=== PATIENT | female | born 1975 | race Two or more races ===

== ENCOUNTER 2025-03-07 19:40 | Emergency (ER) | payer MEDICAID, OTHER ==
[~2025-03-07] VITALS: Ht 160 cm; Wt 88.6 kg
[2025-03-07 19:40] VITALS: TEMP 97
[2025-03-07 20:12] VITALS: PULSE 221; RESP 29
--- NOTE | 2025-03-07 20:15 | ED.PDOC ---
HPI Comments 49-year-old female who came to ER for palpitations. Patient has history of hypertension, congestive heart failure and SVTs. States last attack was 2016. She has been off her lisinopril for the past 2 weeks. For the past hour, she has been experiencing palpitations and chest pains. States pain is similar to when she had an SVT. Chief Complaint: Palpitations Time Seen by MD: 20:15 Reviewed Notes: Nurses Notes Allergies: Coded Allergies: Latex (Verified Allergy, Unknown, 03/07/25) Uncoded Allergies: TDAP (Allergy, Unknown, 03/07/25) Home Meds Active Scripts Lisinopril (Lisinopril) 20 Mg Tab, 1 TAB PO DAILY, #90 TAB 1 Refill Prov:MARYA LYNN MD 03/07/25 Information Source: Patient Mode of Arrival: Ambulatory Severity: Moderate Timing: Minutes Duration: Since onset Quality: Other (Palpitation) History of: Similar pain in past Associated Signs and Symptoms: Palpitations Past Medical History PAST MEDICAL HISTORY: CHF, HTN Past Medical History (Other): SVT Surgical History: Denies all surgeries SOFTWARE ARCHITECT History: Denies all SOFTWARE ARCHITECT Hx Family History Family History: Reviewed,noncontributory to illness Social History Smoker: Non-Smoker Alcohol: Denies ETOH Use Drugs: Denies Drug Use Lives In: Home Constitutional: denies: chills, diaphoresis, fatigue, fever, malaise, sweats, weakness, others EENTM: denies: blurred vision, double vision, ear bleeding, ear discharge, ear drainage, ear pain, ear ringing, eye pain, eye redness, hearing loss, mouth pain, mouth swelling, nasal discharge, nose bleeding, nose congestion, nose pain, photophobia, tearing, throat pain, throat swelling, voice changes, others Respiratory: denies: cough, hemoptysis, orthopnea, SOB at rest, shortness of breath, SOB with excertion, stridor, wheezing, others Cardiovascular: reports: chest pain, palpitations; denies: dizzy spells, diaphoresis, Dyspnea on exertion, edema, irregular heart beat, left arm pain, lightheadedness, PND, syncope, others Gastrointestinal: denies: abdomen distended, abdominal pain, blood streaked bowels, constipated, diarrhea, dysphagia, difficulty swallowing, hematemesis, melena, nausea, poor appetite, poor fluid intake, rectal bleeding, rectal pain, vomiting, others Genitourinary: denies: abnormal vagina bleeding, burning, dyspareunia, dysuria, flank pain, frequency, hematuria, incontinence, pain, , vagina discharge, urgency, others Neurological: denies: dizziness, fainting, headache, left sided numbness, left sided weakness, numbness, paresthesia, pre-existing deficit, right sided numbness, right sided weakness, seizure, speech problems, tingling, tremors, weakness, others Musculoskeletal: denies: back pain, gout, joint pain, joint swelling, muscle pain, muscle stiffness, neck pain, others Integumetry: denies: bruises, change in color, change in hair/nails, dryness, laceration, lesions, lumps, rash, wounds, others Allergic/Immunocompromised: denies: Difficulty Healing, Frequent Infections, Hives, Itching, others Hematologic/Lymphatic: denies: anemia, blood clots, easy bleeding, easy bruising, swollen glands, others Endocrine: denies: excessive hunger, excessive sweating, excessive thirst, excessive urination, flushing, intolerance to cold, intolerance to heat, unexplained weight gain, unexplained weight loss, others Psychiatric: denies: anxiety, bipolar disorder, depression, hopeless, panic disorder, schizophrenia, sleepless, suicidal, others Physical Exam General Appearance: No Apparent Distress, Normal HEENT: Normal ENT Inspection, Pharynx Normal, TMs Normal Neck: Full Range of Motion, Non-Tender, Normal, Normal Inspection Respiratory: Chest Non-Tender, Lungs Clear, No Accessory Muscle Use, No Respiratory Distress, Normal Breath Sounds Cardiovascular: No Edema, No JVD, No Murmur, No Gallop, Tachycardia Breast Exam: Deferred Gastrointestinal: No Organomegaly, Non Tender, No Pulsatile Mass, Normal Bowel Sounds, Soft Genitalia: Deferred Pelvic: Deferred Rectal: Deferred Extremities: No calf tenderness, Normal capillary refill, Normal inspection, Normal range of motion, Non-tender, No pedal edema Musculoskeletal : Apperance: Normal Neurologic: Alert, small arms artillery repairer II-XII nml as Tested, No Motor Deficits, Normal Affect, Normal Mood, No Sensory Deficits Cerebellar Function: Normal Reflexes: Normal Skin: Dry, Normal Color, Warm Lymphatic: No Adenopathy EKG EKG : Pulse Rate (adult): 223 Cardiac Rhythm: PSVT Was a procedure done? Was a procedure done?: No CP Differential Dx Differential Diagnosis: A-fib, Angina, Anxiety / Panic Attack, Heart Failure, Hyperthyroidism, Hyperventilation, PSVT, Sinus Tachycardia X-Ray, Labs, Meds, VS Vital Signs Date Time Temp Pulse Resp B/P (MAP) Pulse Ox O2 Delivery O2 Flow Rate FiO2 03/07/25 22:00 93 17 104/85 (91) 97 03/07/25 21:00 105 22 127/87 (100) 97 03/07/25 20:30 115 25 132/86 (101) 97 03/07/25 20:21 102 03/07/25 20:15 223 03/07/25 20:12 221 29 132/107 (115) 94 03/07/25 20:12 221 29 Room Air* 0 21 03/07/25 19:59 223 03/07/25 19:40 97.0 208 20 118/97 94 97.0 Lab Test 03/07/25 21:11 03/07/25 20:15 Range/Units Sodium Level 141 136-145 mmol/L Potassium Level 3.8 3.5-5.1 mmol/L Chloride Level 109 H 98-107 mmol/L Carbon Dioxide Level 21 20-31 mmol/L Anion Gap 11 5-15 Blood Urea Nitrogen 14 9-23 mg/dL Creatinine 0.76 0.550-1.02 mg/dL Glomerular Filtration Rate Calc 95 >90 mL/min BUN/Creatinine Ratio 18.4 10.0-20.0 Serum Glucose 92 74-106 mg/dL Calcium Level 9.3 8.7-10.4 mg/dL Magnesium Level 2.2 1.6-2.6 mg/dL Total Bilirubin 0.2 0.2-1.0 mg/dL Aspartate Amino Transferase (AST) 29 13-40 U/L Alanine Aminotransferase (ALT) 29 7-40 U/L Alkaline Phosphatase 96 46-116 U/L Troponin I High Sensitivity 68 *H 22 </=34 ng/L Total Protein 7.2 5.7-8.2 g/dL Albumin 4.2 3.2-4.8 g/dL White Blood Count 11.1 H 4.4-10.8 10^3/uL Red Blood Count 5.05 4.0-5.20 10^6/uL Hemoglobin 15.6 12.2-16.2 g/dL Hematocrit 46.4 H 36.0-46.0 % Mean Corpuscular Volume 91.8 80.0-100.0 fL Mean Corpuscular Hemoglobin 30.9 28.0-32.0 pg Mean Corpuscular Hemoglobin Concent 33.7 32.0-36.0 g/dL Red Cell Distribution Width 13.9 11.8-14.3 % Platelet Count 355 140-450 10^3/uL Mean Platelet Volume 8.6 6.9-10.8 fL Neutrophils (%) (Auto) 57.2 37.0-80.0 % Lymphocytes (%) (Auto) 29.5 10.0-50.0 % Monocytes (%) (Auto) 8.8 0.0-12.0 % Eosinophils (%) (Auto) 2.7 0.0-7.0 % Basophils (%) (Auto) 1.8 0.0-2.0 % Neutrophils # (Auto) 6.3 1.6-8.6 10 ^3/uL Lymphocytes # (Auto) 3.3 0.4-5.4 10 ^3/uL Monocytes # (Auto) 1.0 0-1.3 10 ^3/uL Eosinophils # (Auto) 0.3 0-0.8 10 ^3/uL Basophils # (Auto) 0.2 0-0.2 10 ^3/uL Nucleated Red Blood Cells 0.2 % Current Medications Medications (Trade) Dose Ordered Sig/Julia Route Start Time Stop Time Status Last Admin Adenosine (Adenosine) 6 mg ONCE ONCE IV 03/07/25 20:15 03/07/25 20:16 DC 03/07/25 20:23 Time of 1ST Reevaluation: 20:12 Reevaluation 1ST: Unchanged Patient Education/Counseling: Diagnosis, Treatment Family Education/Counseling: No Family Present SEPSIS Sepsis Screen Physician Orders Rigger Helper (03/07/25 19:59) Chest Xray 1 View (03/07/25 19:59) Vital Signs Date Time Temp Pulse Resp B/P (MAP) Pulse Ox O2 Delivery O2 Flow Rate FiO2 03/07/25 22:00 93 17 104/85 (91) 97 03/07/25 21:00 105 22 127/87 (100) 97 03/07/25 20:30 115 25 132/86 (101) 97 03/07/25 20:21 102 03/07/25 20:15 223 03/07/25 20:12 221 29 132/107 (115) 94 03/07/25 20:12 221 29 Room Air* 0 21 03/07/25 19:59 223 03/07/25 19:40 97.0 208 20 118/97 94 97.0 Laboratory Tests Test 03/07/25 20:15 White Blood Count 11.1 10^3/uL (4.4-10.8) H Medications Medications Dose Ordered Sig/Julia Route Start Time Stop Time Status Last Admin Dose Admin Adenosine 6 mg ONCE ONCE IV 03/07/25 20:15 03/07/25 20:16 DC 03/07/25 20:23 Departure 1 Departure Time of Disposition: 22:00 Impression: Primary Impression: Hypertension Additional Impression: SVT (supraventricular tachycardia) Disposition: HOME / SELF CARE / HOMELESS Condition: Stable e-Prescriptions Lisinopril (Lisinopril) 20 Mg Tab 1 TAB PO DAILY, #90 TAB 1 Refill Prov: MARYA LYNN MD 03/07/25 Discharged With: Self Critical Care Note Critical Care Time?: Yes (35 min-critical care time only) Critical care comment: SVTs Stability Stability form required: No Heart Score Heart Score: Heart Score Response (Comments) Value History Moderate Suspicious 1 EKG Repolarization Disturb 1 Age 45-64 1 Risk Factors 1 or 2 risk factors 1 Troponin Normal limit 0 Total 4 I personally scribed for MARYA LYNN MD ([email or web address]) on 03/07/25 at 20:15. Electronically submitted by Anderson Ferrari ([facility]). MARYA LYNN MD Mar 07, 2025 20:15
[2025-03-07] MEDS: ADENOSINE 6 MG/2 ML INJ IV ONE (20:23)
[2025-03-07 20:46] LABS: Hematocrit 46.4 % (36.0-46.0); Hemoglobin 15.6 g/dL (12.2-16.2); Mean Corpuscular Hemoglobin 30.9 pg (28.0-32.0); Mean Corpuscular Volume 91.8 fL (80.0-100.0); Nucleated Red Blood Cells % 0.2 %
--- NOTE | 2025-03-07 20:53 | DVH ---
CHEST RADIOGRAPH Indication: chest pain Technique: Single frontal view of the chest was obtained Comparison: None FINDINGS: Lines and Tubes: None Lungs: No focal consolidation. Pleura: No effusion. No pneumothorax. Cardiomediastinal contours: Unremarkable Bones: No acute osseous abnormality. IMPRESSION: 1. No acute cardiopulmonary disease.
[2025-03-07 21:52] LABS: Alanine Aminotransferase 29 U/L (7-40); Albumin 4.2 g/dL (3.2-4.8); Alkaline Phosphatase 96 U/L (46-116); Anion Gap 11 (5-15); BUN/Creatinine Ratio 18.4 (10.0-20.0); Blood Urea Nitrogen 14 mg/dL (9-23); Calcium 9.3 mg/dL (8.7-10.4); Carbon Dioxide 21 mmol/L (20-31); Glucose 92 mg/dL (74-106); Magnesium 2.2 mg/dL (1.6-2.6); Potassium 3.8 mmol/L (3.5-5.1); Sodium 141 mmol/L (136-145); Total Protein 7.2 g/dL (5.7-8.2)
[2025-03-07 22:00] VITALS: BP 104/85; PULSE 93; RESP 17; O2SAT 97
[2025-03-07 22:10] LABS: Bilirubin, Total 0.2 mg/dL (0.2-1.0); Chloride 109 mmol/L (98-107)
[2025-03-07] MEDS ORDERED: LISI20TA56 PO (22:18)
--- NOTE | 2025-03-08 00:40 | ECG ---
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
--- NOTE | 2025-03-10 10:31 | ECG ---
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
== END 2025-03-07 22:35 | disposition home or self-care (01) ==
LOC: ER 19:50
DX: I11.0 Hypertensive heart disease with heart failure (principal); I50.9 Heart failure, unspecified; I47.10 Supraventricular tachycardia, unspecified; Z79.899 Other long term (current) drug therapy; Z88.7 Allergy status to serum and vaccine; Z91.040 Latex allergy status
CPT/HCPCS: 36415; 71045; 80053; 83735; 84484; 85025; 93005; 96374; 99285; J0153

== ENCOUNTER 2025-03-16 19:07 | Emergency (ER) | payer MEDICAID ==
[~2025-03-16] VITALS: Ht 160 cm; Wt 93.8 kg
[~2025-03-16 19:07] MED LIST: LISI20TA56 PO
--- NOTE | 2025-03-16 19:25 | ED.PDOC ---
HPI Allergic reaction HPI Comments HPI: 49-year-old female who came to ER for allergic reaction. Patient states she usually gets allergic reaction 2-3x/ year. About 2 hours prior to arrival, she started experiencing right facial swelling, throat swelling and pruritus. She opted not to take Benadryl because it makes her feel sleepy, so she decided to go straight to the ER. Patient claims she might have been bitten by a dust mite on the right arm Initial Vitals BP: HR:75 RR:18 O2:99% Temp:98.0 F Past Medical History: Hypertension, CHF, SVT Past Surgical History: BTL Social History: Medications: Allergies: Dust mites, latex, Diphteria_Tetanus vaccine, cats Ortiz: allergic rxn. HPI: Poor Historian. REVIEW OF SYSTEMS: CONSTITUTIONAL: Denies acute: fever, diaphoresis, chills, generalized weakness. HEAD: Denies acute: headache, photophobia Eyes: Denies acute: Double vision, vision loss, eye pain, eye discharge. EARS: Denies acute: tinnitus, hearing loss, ear discharge, ear pain, THROAT: Denies acute: sore throat, swelling, difficulty swallowing , pain with swallowing, change in voice. NECK: Denies acute: neck pain, neck swelling, stiff neck. HEART: Denies acute : chest pain, palpitations, LUNGS: Denies acute: SOB, wheezing, cough, hemoptysis ABDOMEN: Denies acute: abdominal pain, Nausea, Vomiting, diarrhea, melena , hematemesis, hematochezia SKIN: Denies acute: rash, redness, lesions, itchiness. EXTREMITIES: Denies acute: calf pain, numbness, tingling, weakness, denies pain in extremity. Denies acute: Low back pain. Neuro: Denies acute: focal neurological deficit, motor or sensory focal neurological deficit, tremors, seizure like activity, confusion, dizziness, change in mental status, loss of bowel or bladder function, cauda equina like symptoms. : Denies acute: dysuria, hematuria, flank pain, increase in urinary frequency. PSYCH: Denies acute: hallucination, suicidal ideation, homicidal ideation. FEMALE: Denies acute: abnormal vaginal bleeding, foul odor, unusual discharge. PHYSICAL EXAM: General: ----no----acute distress, awake and alert. Head: normocephalic, atraumatic. Neck: supple, trachea is midline, no swelling. Throat: Normal phonation. No obstruction, no swelling, no drooling, no airway compromise, no erythema, no exudates Minimal right lower lip puffiness minimal right mandibular puffiness Eyes:, no erythema, no purulent discharge, no proptosis, no icterus. Heart: regular rate, regular rhythm, no significant murmur appreciated. Lungs: no apparent respiratory distress, Able to speak in full sentences. No wheezing, no rhonchi, no crackles. No stridors Clear to auscultation bilaterally. Abdomen: non tender to palpation, non distended, soft, no guarding, no rebound, + bowel sounds. Obese Neuro: Awake, Alert, oriented to name, self, situation, follows commands GCS=15. Speech is normal. Skin: no petechia, no purpura, no cyanosis, non-pale, not jaundice. Lower extremities: --no - Pitting edema no deformity, no focal swelling, no calf TTP. Makes eye contact. moves all four extremities. Face: no apparent facial droop. Ambulating in the ED independently. No nuchal rigidity, Kernig's sign, Brudzinski's sign, no meningeal signs. ED COURSE: DISCLAIMER: This medical document was created using an electronic medical record system with voice recognition software and computerized dictation system. Although this document has been carefully reviewed, there might still be some phonetic and typographical errors. Occasional wrong-word or "sound-alike" substitutions may have occurred due to the inherent limitations of voice recognition software. These areas are purely typographical due to imperfections of the software programs and do not reflect any compromise in the patient's medical care. Please read the chart carefully and recognize, using context, where these substitutions have occurred. Chief Complaint: Allergic Reaction Time Seen by MD: 19:25 Reviewed Notes: Nurses Notes Allergies: Coded Allergies: Latex (Verified Allergy, Unknown, 03/07/25) Uncoded Allergies: TDAP (Allergy, Unknown, 03/07/25) Home Meds Active Scripts Prednisone (Prednisone) 20 Mg Tab, 40 MG PO DAILY for 5 Days, #10 TAB Prov:ROLANDO CHRISTIANSON DO 03/16/25 Epinephrine (Anaphylaxis) (Auvi-Q) 0.1 Mg/0.1 Ml Inj, 0.1 MG IJ O PRN for 1 Day, #1 INJ Prov:ROLANDO CHRISTIANSON DO 03/16/25 Lisinopril (Lisinopril) 20 Mg Tab, 1 TAB PO DAILY, #90 TAB 1 Refill Prov:MARYA LYNN MD 03/07/25 Information Source: Patient Mode of Arrival: Ambulatory Past Medical History PAST MEDICAL HISTORY: CHF, HTN Surgical History: Denies all surgeries HEALTH CENTER ASSOCIATE History: Denies all HEALTH CENTER ASSOCIATE Hx Family History Family History: Reviewed,noncontributory to illness Social History Smoker: Non-Smoker Alcohol: Denies ETOH Use Drugs: Denies Drug Use Lives In: Home Was a procedure done? Was a procedure done?: No Differential diagnosis (all) Differential Diagnosis: Anaphylaxis, Angioedema, Bronchospasm, Contact Dermatitis, Drug Reaction, Hypotension, Renal Failure, Respiratory Failure, Shock, Urticaria X-Ray, Labs, Meds, VS Vital Signs Date Time Temp Pulse Resp B/P (MAP) Pulse Ox O2 Delivery O2 Flow Rate FiO2 03/16/25 20:03 81 18 97 Room Air* 0 21 03/16/25 20:03 98.1 81 18 152/90 (110) 97 98.1 03/16/25 19:08 98.0 75 18 99 98.0 Current Medications Medications (Trade) Dose Ordered Sig/Julia Route Start Time Stop Time Status Last Admin Famotidine (Pepcid Injection) 20 mg ONCE ONCE IV 03/16/25 19:30 03/16/25 19:31 DC 03/16/25 20:19 Methylprednisolone Sodium Succinate (Solu Medrol) 125 mg ONCE ONCE IV 03/16/25 19:30 03/16/25 19:31 DC 03/16/25 20:16 Diphenhydramine HCl (Benadryl Injection) 25 mg ONCE ONCE IV 03/16/25 19:30 03/16/25 19:31 DC 03/16/25 20:16 Dexamethasone Sodium Phosphate (Decadron Injection) 20 mg ONCE ONCE IV 03/16/25 22:00 03/16/25 22:01 DC 03/16/25 22:10 Time of 1ST Reevaluation: 23:45 Reevaluation 1ST: Resolved Patient Education/Counseling: Diagnosis, Treatment Family Education/Counseling: Other Comments MDM: patient presented with the above HPI.----allergic reaction--workup was initiated. patient was found with the above mentioned diagnosis. the following medications were ordered: please refer to order lists of meds and tests obtained by myself Dr. Christianson. Patient ED course and VS have been stabilized. Patient has [facility]essed [facility] and remained in a stable condition. Pertinent incidental findings were discussed with the patient and/or family. Patient/family voices understanding and is agreeable with plan. Patient has been observed in the ED adequate length of time to insure improvement/stability. Escalation of care considered: Consideration of escalation to observation or admission Patient was DISCHARGED home in a stable condition. All the reports of any imaging studies that were ordered by myself were reviewed by myself. SEPSIS Sepsis Screen Date sepsis recognized/suspect: Mar 16, 2025 Time Sepsis recognized/suspect: 1908 Recent Procedure: No On Antibiotic Therapy: No Respiratory Rate >20: No Heart Rate >90: No Temp<36 C (96.8 F) or >38.3 C: No SBP <90 or MAP <65 mmHG: No New Acute Mental Status Change: No Is the patient on CPAP, BIPAP,: No Physician Orders Ticket Taker (03/16/25 ) Vital Signs Date Time Temp Pulse Resp B/P (MAP) Pulse Ox O2 Delivery O2 Flow Rate FiO2 03/16/25 20:03 81 18 97 Room Air* 0 21 03/16/25 20:03 98.1 81 18 152/90 (110) 97 98.1 03/16/25 19:08 98.0 75 18 99 98.0 Medications Medications Dose Ordered Sig/Julia Route Start Time Stop Time Status Last Admin Dose Admin Dexamethasone Sodium Phosphate 20 mg ONCE ONCE IV 03/16/25 22:00 03/16/25 22:01 DC 03/16/25 22:10 Diphenhydramine HCl 25 mg ONCE ONCE IV 03/16/25 19:30 03/16/25 19:31 DC 03/16/25 20:16 Famotidine 20 mg ONCE ONCE IV 03/16/25 19:30 03/16/25 19:31 DC 03/16/25 20:19 Methylprednisolone Sodium Succinate 125 mg ONCE ONCE IV 03/16/25 19:30 03/16/25 19:31 DC 03/16/25 20:16 Departure 1 Departure Time of Disposition: 21:46 Impression: Primary Impression: Allergic reaction Disposition: HOME / SELF CARE / HOMELESS Condition: Stable Additional Instructions: Additional instructions: Please read all instructions provided in this packet carefully. You MUST follow-up with your primary care/family doctor in 1 to 2 days. If you are unable to see your primary care/family doctor, please return to our emergency room for re-assessment and re-evaluation in 1 to 2 days. Return to the emergency room here in our facility or to the nearest ER [facility] if your symptoms change or worsen. CONSULTATIONS: you MUST Follow-up for consultation as soon as possible with: --cancer registrar in 1-2 days. Please call for appointment. You MUST call the consultants office yourself to make an appointment. You may need to arrange that through your insurance and/or your primary/family doctor. If you are unable to see the merchandising consultant in 1 to 2 days, you must return to our emergency room (or any other ER of your choice) for re-assessment and re-evalu ation. Adequate fluid hydration. Take the following [id number] medications daily for the next five days Benadryl 25 mg one pill by mouth daily for five days. Pepcid 20 mg one pill by mouth daily for five days. You are also prescribed steroids to take. Pick this up from the pharmacy Although you have been discharged from the Emergency Department, this does not mean that you have a "clean bill of health". No definitive diagnosis for your symptoms has been made today. It is possible that you are in the process of developing a serious illness. This is why you must return to the ED without fail if any new or worsening symptoms develop. e-Prescriptions Prednisone (Prednisone) 20 Mg Tab 40 MG PO DAILY for 5 Days, #10 TAB Prov: ROLANDO CHRISTIANSON DO 03/16/25 Epinephrine (Anaphylaxis) (Auvi-Q) 0.1 Mg/0.1 Ml Inj 0.1 MG IJ O PRN for 1 Day, #1 INJ Prov: ROLANDO CHRISTIANSON DO 03/16/25 Discharged With: Self Critical Care Note Critical Care Time?: Yes (45 min-critical care time only) Critical care comment: Allergic reaction Additional Comments Additional Comments Additional Comments Stability Stability form required: No I personally scribed for ROLANDO CHRISTIANSON DO ([email or web address]) on 03/16/25 at 19:25. E lectronically submitted by Anderson Ferrari ([email or web address]). ROLANDO CHRISTIANSON DO Mar 16, 2025 19:25
[2025-03-16 20:03] VITALS: PULSE 81; RESP 18; TEMP 98.1; O2SAT 97
[2025-03-16] MEDS: diphenhydrAMINE HCL 50 MG/1 ML VL IV ONE (20:16)
[2025-03-16] MEDS: methylPREDNISolone SOD SUCC 125 MG/2 ML VL IV ONE (20:16)
[2025-03-16] MEDS: FAMOTIDINE (10MG/ML) 2ML VL IV ONE (20:19)
[2025-03-16] MEDS ORDERED: EPIN0.1I11 IJ (21:46)
[2025-03-16] MEDS ORDERED: PRED20TA2 PO (21:47)
[2025-03-17 00:01] VITALS: BP 141/72; PULSE 84; RESP 18; O2SAT 98
== END 2025-03-17 00:03 | disposition home or self-care (01) ==
LOC: ER 19:07
DX: L29.9 Pruritus, unspecified (principal); T78.40XA Allergy, unspecified, initial encounter; I11.0 Hypertensive heart disease with heart failure; I50.9 Heart failure, unspecified; Z79.899 Other long term (current) drug therapy; Z98.51 Tubal ligation status; Z91.040 Latex allergy status; Z88.7 Allergy status to serum and vaccine; X58.XXXA Exposure to other specified factors, initial encounter
CPT/HCPCS: 96374; 96375; 99284; J1100; J1200; J2919; J3490

== ENCOUNTER 2025-05-13 16:28 | Emergency (ER) | payer MEDICAID, OTHER ==
[~2025-05-13] VITALS: Ht 160 cm; Wt 97.7 kg
[~2025-05-13 16:28] MED LIST changes: +EPIN0.1I11 IJ; +PRED20TA2 PO
[2025-05-13] MEDS: ADENOSINE 6 MG/2 ML INJ IV ONE ×2 (16:42→16:47)
--- NOTE | 2025-05-13 16:43 | ED.PDOC ---
History of Present Illness HPI Comments 49 y/o obese F presents with c/c of palpitations and nonradiating, substernal chest pain. Patient endorses on sudden and unprovoked onset of symptoms 30-40x minutes prior to ED arrival. Significant history for SVT, CHF, and HTN. She reports on symptoms feeling similar to previous SVT episode 2x months ago. No reported associated shortness of breath, dizziness, or further acute symptoms. Time Seen by MD: 16:30 Reviewed Notes: Nurses Notes, Medications, Allergies Allergies: Coded Allergies: Latex (Verified Allergy, Unknown, 03/07/25) Uncoded Allergies: TDAP (Allergy, Unknown, 03/07/25) Home Meds Active Scripts Prednisone (Prednisone) 20 Mg Tab, 40 MG PO DAILY for 5 Days, #10 TAB Prov:ROLANDO CHRISTIANSON DO 03/16/25 Epinephrine (Anaphylaxis) (Auvi-Q) 0.1 Mg/0.1 Ml Inj, 0.1 MG IJ O PRN for 1 Day, #1 INJ Prov:ROLANDO CHRISTIANSON DO 03/16/25 Lisinopril (Lisinopril) 20 Mg Tab, 1 TAB PO DAILY, #90 TAB 1 Refill Prov:MARYA LYNN MD 03/07/25 Information Source: Patient Mode of Arrival: Ambulatory Severity: Moderate Timing: Minutes Duration: Since onset Prehospital treatment: None Past Medical History PAST MEDICAL HISTORY: CHF, HTN Past Medical History (Other): SVT Surgical History: 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 Family History Family History: Reviewed,noncontributory to illness Social History Smoker: Other (nicotine vape ) Alcohol: Denies ETOH Use Drugs: Denies Drug Use Lives In: Home Constitutional: denies: chills, diaphoresis, fatigue, fever, malaise, sweats, weakness, others EENTM: denies: blurred vision, double vision, ear bleeding, ear discharge, ear drainage, ear pain, ear ringing, eye pain, eye redness, hearing loss, mouth pain, mouth swelling, nasal discharge, nose bleeding, nose congestion, nose pain, photophobia, tearing, throat pain, throat swelling, voice changes, others Respiratory: denies: cough, hemoptysis, orthopnea, SOB at rest, shortness of b reath, SOB with excertion, stridor, wheezing, others Cardiovascular: reports: chest pain, palpitations; denies: dizzy spells, diaphoresis, Dyspnea on exertion, edema, irregular heart beat, left arm pain, lightheadedness, PND, syncope, others Gastrointestinal: denies: abdomen distended, abdominal pain, blood streaked bowels, constipated, diarrhea, dysphagia, difficulty swallowing, hematemesis, melena, nausea, poor appetite, poor fluid intake, rectal bleeding, rectal pain, vomiting, others Genitourinary: denies: abnormal vagina bleeding, burning, dyspareunia, dysuria, flank pain, frequency, hematuria, incontinence, pain, , vagina discharge, urgency, others Neurological: denies: dizziness, fainting, headache, left sided numbness, left sided weakness, numbness, paresthesia, pre-existing deficit, right sided numbness, right sided weakness, seizure, speech problems, tingling, tremors, weakness, others Musculoskeletal: denies: back pain, gout, joint pain, joint swelling, muscle pain, muscle stiffness, neck pain, others Integumetry: denies: bruises, change in color, change in hair/nails, dryness, laceration, lesions, lumps, rash, wounds, others Allergic/Immunocompromised: denies: Difficulty Healing, Frequent Infections, Hives, Itching, others Hematologic/Lymphatic: denies: anemia, blood clots, easy bleeding, easy bruising, swollen glands, others Endocrine: denies: excessive hunger, excessive sweating, excessive thirst, excessive urination, flushing, intolerance to cold, intolerance to heat, unexplained weight gain, unexplained weight loss, others Psychiatric: denies: anxiety, bipolar disorder, depression, hopeless, panic disorder, schizophrenia, sleepless, suicidal, others All Other Systems: Reviewed and Negative Physical Exam General Appearance: Moderate Distress HEENT: Normal ENT Inspection, Pharynx Normal, TMs Normal Neck: Full Range of Motion, Non-Tender, Normal, Normal Inspection Respiratory: Chest Non-Tender, Lungs Clear, No Accessory Muscle Use, No Respiratory Distress, Normal Breath Sounds Cardiovascular: No Edema, No JVD, No Murmur, No Gallop, Tachycardia Breast Exam: Deferred Gastrointestinal: No Organomegaly, Non Tender, No Pulsatile Mass, Normal Bowel Sounds, Soft Genitalia: Deferred Pelvic: Deferred Rectal: Deferred Extremities: No calf tenderness, Normal capillary refill, Normal inspection, Normal range of motion, Non-tender, No pedal edema Musculoskeletal : Apperance: Normal Neurologic: Alert, supply chain procurement manager II-XII nml as Tested, No Motor Deficits, Normal Affect, Normal Mood, No Sensory Deficits Cerebellar Function: Normal Reflexes: Normal Skin: Dry, Normal Color, Warm Lymphatic: No Adenopathy Was a procedure done? Was a procedure done?: No EKG EKG : Pulse Rate (adult): 236 [place]: Normal Cardiac Rhythm: PSVT Differential Dx Considerations may include: SVT, arrhythmia, NC, PE, electrolyte imbalance, dehydration, among others X-Ray, Labs, Meds, VS Vital Signs Date Time Temp Pulse Resp B/P (MAP) Pulse Ox O2 Delivery O2 Flow Rate FiO2 05/13/25 18:43 97.5 94 15 120/89 (99) 100 97.5 05/13/25 17:01 108 25 96 Room Air* 0 21 05/13/25 17:01 97.6 108 16 131/71 (91) 97 97.6 05/13/25 16:43 236 05/13/25 16:39 98.4 228 18 111/41 97 98.4 Lab Test 05/13/25 17:53 05/13/25 16:53 Range/Units Troponin I High Sensitivity 27 6 </=34 ng/L White Blood Count 9.5 4.4-10.8 10^3/uL Red Blood Count 4.54 4.0-5.20 10^6/uL Hemoglobin 14.1 12.2-16.2 g/dL Hematocrit 42.1 36.0-46.0 % Mean Corpuscular Volume 92.8 80.0-100.0 fL Mean Corpuscular Hemoglobin 31.1 28.0-32.0 pg Mean Corpuscular Hemoglobin Concent 33.5 32.0-36.0 g/dL Red Cell Distribution Width 13.9 11.8-14.3 % Platelet Count 332 140-450 10^3/uL Mean Platelet Volume 8.3 6.9-10.8 fL Neutrophils (%) (Auto) 57.9 37.0-80.0 % Lymphocytes (%) (Auto) 28.7 10.0-50.0 % Monocytes (%) (Auto) 9.4 0.0-12.0 % Eosinophils (%) (Auto) 3.1 0.0-7.0 % Basophils (%) (Auto) 0.9 0.0-2.0 % Neutrophils # (Auto) 5.5 1.6-8.6 10 ^3/uL Lymphocytes # (Auto) 2.7 0.4-5.4 10 ^3/uL Monocytes # (Auto) 0.9 0-1.3 10 ^3/uL Eosinophils # (Auto) 0.3 0-0.8 10 ^3/uL Basophils # (Auto) 0.1 0-0.2 10 ^3/uL Nucleated Red Blood Cells 0.0 % Sodium Level 141 136-145 mmol/L Potassium Level 3.6 3.5-5.1 mmol/L Chloride Level 109 H 98-107 mmol/L Carbon Dioxide Level 21 20-31 mmol/L Anion Gap 11 5-15 Blood Urea Nitrogen 13 9-23 mg/dL Creatinine 0.82 0.550-1.02 mg/dL Glomerular Filtration Rate Calc 87 >90 mL/min BUN/Creatinine Ratio 15.9 10.0-20.0 Serum Glucose 102 74-106 mg/dL Calcium Level 9.8 8.7-10.4 mg/dL Magnesium Level 2.2 1.6-2.6 mg/dL Current Medications Medications (Trade) Dose Ordered Sig/Julia Route Start Time Stop Time Status Last Admin Adenosine (Adenosine) 6 mg ONCE ONCE IV 05/13/25 16:45 05/13/25 16:46 DC 05/13/25 16:42 IV Hep-Lock was established. The patient's CBC and chemistry panel are within normal limits The troponin level x2 is negative The patient was given adenosine 6 mg IV push The patient converted into normal sinus rhythm at around 90 At this time, the patient is being discharged and will follow up with the primary care doctor The patient will return to the emergency department's the condition worsens The patient understands and agrees with the management Time of 1ST Reevaluation: 17:00 Reevaluation 1ST: Improved Patient Education/Counseling: Diagnosis, Treatment, Prognosis, Need For Follow Up Family Education/Counseling: No Family Present SEPSIS Sepsis Screen Physician Orders Heplock Iv (05/13/25 16:40) Troponin-I Hs (05/13/25 19:40) Electrocardigram (05/13/25 17:40) Electrocardigram (05/13/25 19:40) Treater (05/13/25 16:40) Blood Pressure (05/13/25 16:40) Pulse Oximetry (05/13/25 16:40) Electrocardigram (05/13/25 16:40) Vital Signs Date Time Temp Pulse Resp B/P (MAP) Pulse Ox O2 Delivery O2 Flow Rate FiO2 05/13/25 18:43 97.5 94 15 120/89 (99) 100 97.5 05/13/25 17:01 108 25 96 Room Air* 0 21 05/13/25 17:01 97.6 108 16 131/71 (91) 97 97.6 05/13/25 16:43 236 05/13/25 16:39 98.4 228 18 111/41 97 98.4 Laboratory Tests Test 05/13/25 16:53 White Blood Count 9.5 10^3/uL (4.4-10.8) Medications Medications Dose Ordered Sig/Julia Route Start Time Stop Time Status Last Admin Dose Admin Adenosine 6 mg ONCE ONCE IV 05/13/25 16:45 05/13/25 16:46 DC 05/13/25 16:42 Departure 1 Departure Time of Disposition: 19:17 Impression: Primary Impression: SVT (supraventricular tachycardia) Disposition: 01 HOME / SELF CARE / HOMELESS Condition: Fair Discharged With: Self Critical Care Note Critical Care Time?: No Stability Stability form required: No Heart Score Heart Score: Heart Score Response (Comments) Value History Highly Suspicious 2 EKG Repolarization Disturb 1 Age 45-64 1 Risk Factors >3 or Hx ASHD 2 Troponin Normal limit 0 Total 6 I personally scribed for JOELLE MCCORD MD ([email or web address]) on 05/13/25 at 16:43. Electronically submitted by Cristhian Higgins ([email or web address]). I personally scribed for JOELLE MCCORD MD ([email or web address]) on 05/13/25 at 16:44. Electronically submitted by Cristhian Higgins ([email or web address]). JOELLE MCCORD MD May 13, 2025 16:43
[2025-05-13 17:01] VITALS: PULSE 108; RESP 25; O2SAT 96
[2025-05-13 17:36] LABS: Hematocrit 42.1 % (36.0-46.0); Hemoglobin 14.1 g/dL (12.2-16.2); Mean Corpuscular Hemoglobin 31.1 pg (28.0-32.0); Mean Corpuscular Volume 92.8 fL (80.0-100.0); Nucleated Red Blood Cells % 0.0 %
[2025-05-13 17:45] LABS: Potassium 3.6 mmol/L (3.5-5.1); Sodium 141 mmol/L (136-145)
[2025-05-13 17:46] LABS: Anion Gap 11 (5-15); Calcium 9.8 mg/dL (8.7-10.4); Carbon Dioxide 21 mmol/L (20-31)
[2025-05-13 17:47] LABS: Chloride 109 mmol/L (98-107)
[2025-05-13 17:51] LABS: BUN/Creatinine Ratio 15.9 (10.0-20.0); Blood Urea Nitrogen 13 mg/dL (9-23); Glucose 102 mg/dL (74-106); Magnesium 2.2 mg/dL (1.6-2.6)
[2025-05-13 19:56] VITALS: BP 120/89; PULSE 98; RESP 14; TEMP 98.3; O2SAT 98
--- NOTE | 2025-05-13 22:44 | ECG ---
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
--- NOTE | 2025-05-13 23:52 | ECG ---
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
--- NOTE | 2025-05-14 13:57 | ECG ---
[facility] Test Date: 2025-05-13 Test Time: 16:30:40 Pat Name: DOC BEARD Department: ED Room: Gender: F Spa Supervisor: gordon : 1975 Requested By: JOELLE MCCORD Order Number: [id number] Reading MD: Measurements Intervals Osteen Rate: 236 P: -29 ID: [id number] QRS: 82 QRSD: 76 T: -56 QT: 209 QTc: 415 Interpretive Statements Supraventricular tachycardia Probable anteroseptal infarct, recent Baseline wander in lead(s) II,III,aVL,aVF,V1,V2,V3,V4,V5,V6 Please click the below link to view image of tracing.
== END 2025-05-13 20:06 | disposition home or self-care (01) ==
LOC: ER 16:28
DX: I47.10 Supraventricular tachycardia, unspecified (principal); I11.0 Hypertensive heart disease with heart failure; F17.290 Nicotine dependence, other tobacco product, uncomplicated; Z91.040 Latex allergy status; Z98.51 Tubal ligation status; Z88.7 Allergy status to serum and vaccine; Z79.52 Long term (current) use of systemic steroids; Z79.899 Other long term (current) drug therapy
CPT/HCPCS: 36415; 80048; 83735; 84484; 85025; 93005; 96374; 99284; J0153

== ENCOUNTER 2025-05-13 21:27 | Inpatient (IN) | payer OTHER ==
[~2025-05-13] VITALS: Ht 160 cm; Wt 107.5 kg
[2025-05-13 21:52] VITALS: PULSE 220; RESP 20; O2SAT 97
[2025-05-13] MEDS: dilTIAZem 25 MG/5 ML VIAL IV ONE (21:57)
--- NOTE | 2025-05-13 21:59 | ED.PDOC ---
History of Present Illness HPI Comments 49 y/o F presents with c/c of palpitations and nonradiating, substernal chest pain today. Patient was seen earlier today, around 1630, by Dr. Zapata for the same issue. Patient was given adenosine 6mg IV push. Patient converted to normal sinus rhythm at around 90BPM. Patient reports leaving the ED around 1999, but returning to the ED with sudden, onset of symptoms. Significant history for SVT, CHF, and HTN. She reports on symptoms feeling similar to previous SVT episode 2x months ago. No reported associated shortness of breath, dizziness, or further acute symptoms. REVIEW OF SYSTEMS: General: No fever, no chills, or fatigue HEENT: No sore throat, no earache, no congestion, no neck pain. Cardiac: (+) chest pain. No palpitations. Lungs: No shortness of breath, no cough. GI: No nausea, no vomiting, no diarrhea, no constipation, no abdominal pain : No dysuria, frequency, or urgency. No hematuria. Musculoskeletal: No joint pain , no joint swelling, no extremity edema. Skin: No rash, no itching. Neuro: No headache, no dizziness, no weakness (And as sated in HPI) PHYSICAL EXAM: General: Awake, alert and oriented. No acute distress. Skin: Skin in warm, dry and intact. Appropriate color for ethnicity. HEENT: The head is normocephalic and atraumatic. Conjunctivae are clear without exudates or hemorrhage. Sclera is non-icteric. Eyelids are normal in appearance without swelling or lesions. Oral mucosa is pink and moist Neck: The neck is supple with normal range of motion. No JVD. Cardiac: Rapid rate, regular rhythm. No murmurs, gallops, or rubs are auscultated. Respiratory: No signs of respiratory distress. Lung sounds are clear in all lobes bilaterally without rales, rhonchi, or wheezes. Extremities: Lower extremities without edema. Neurological: The patient is awake, alert and oriented to person, place, and time with normal speech. Speech is clear. There is no facial asymmetry. Psychiatric: Appropriate mood and affect. Good judgement and insight. Chief Complaint: Palpitations Time Seen by MD: 21:28 Reviewed Notes: Medications, Allergies Allergies: Coded Allergies: Latex (Verified Allergy, Unknown, 03/07/25) Penicillins (Verified Allergy, Unknown, 05/13/25) Uncoded Allergies: TDAP (Allergy, Unknown, 03/07/25) Home Meds Active Scripts Metoprolol Tartrate (LOPRESSOR TABLET) 50 Mg Tb, 50 MG PO BID for 30 Days, #60 TAB Prov:MAYO MOJICA PRE WAVE ASSEMBLER 05/15/25 Prednisone (Prednisone) 20 Mg Tab, 40 MG PO DAILY for 5 Days, #10 TAB Prov:ROLANDO CHRISTIANSON DO 03/16/25 Epinephrine (Anaphylaxis) (Auvi-Q) 0.1 Mg/0.1 Ml Inj, 0.1 MG IJ O PRN for 1 Day, #1 INJ Prov:ROLANDO CHRISTIANSON DO 03/16/25 Lisinopril (Lisinopril) 20 Mg Tab, 1 TAB PO DAILY, #90 TAB 1 Refill Prov:MARYA LYNN MD 03/07/25 Information Source: Patient Mode of Arrival: Ambulatory Severity: Moderate Timing: Hours Duration: Intermittent Past Medical History PAST MEDICAL HISTORY: CHF, HTN 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 Was a procedure done?: No EKG EKG : Pulse Rate (adult): 220 [place]: Normal Comments Supraventricular tachycardia Differential Dx Considerations may include: Differential diagnoses considered include acute ischemic coronary syndrome, aortic dissection, cardiac tamponade, mediastinitis, pulmonary embolus, pneumothorax, tension pneumothorax, esophageal rupture, coronary artery vasospasm, myocarditis, pericarditis, pneumonia, pulmonary edema, esophageal tear, pancreatitis, aortic stenosis, dilated cardiomyopathy, hypertrophic cardiomyopathy, mitral valve prolapse, malignancy, pleuritis, pneumomediastinum, primary pulmonary hypertension, cholecystitis, esophageal spasm, esophagus, gastritis, GERD, peptic ulcer disease, costochondritis, fibromyalgia, rib fracture, herpes zoster, radicular syndromes, thoracic outlet syndrome, somatization. X-Ray, Labs, Meds, VS Vital Signs Date Time Temp Pulse Resp B/P (MAP) Pulse Ox O2 Delivery O2 Flow Rate FiO2 05/13/25 23:00 97.5 92 16 96/70 (79) 97 97.5 05/13/25 22:41 95 05/13/25 22:17 97.5 88 19 107/72 (84) 97 97.5 05/13/25 22:07 97.5 62 15 106/72 (83) 97 97.5 05/13/25 21:59 220 05/13/25 21:53 97.5 226 19 92/59 (70) 97 97.5 05/13/25 21:52 220 20 97 Room Air* 0 21 05/13/25 21:37 220 05/13/25 21:33 98.0 228 20 124/78 97 98.0 Lab Test 05/13/25 22:38 05/13/25 21:42 Range/Units Troponin I High Sensitivity 235 *H 239 *H </=34 ng/L [place] [address] Ph: [phone] DIAGNOSTIC IMAGING Diagnostic Imaging Report : [id number] Signed PATIENT: DOC BEARD ACCT: [id number] UNIT: [id number] : 1975 LOC: ER ROOM / BED: / AGE / SEX: 49 / F ADM STATUS: REG ER SERVICE 30 ORDERING PHYSICIAN: BANDAR THOMAS MD PROCEDURE(s): CXR1 - CHEST XRAY 1 VIEW REASON: CHEST PAIN ORDER NUMBER(s): [id number], ACCESSION NUMBER(s): [id number] CLINICAL HISTORY: CHEST PAIN TECHNIQUE: Single view of the chest was obtained. COMPARISON: XY CHEST XRAY 1 VIEW on DOS: 03/07/25 FINDINGS: The heart size and pulmonary vasculature are normal. The lungs are clear. IMPRESSION: NO ACUTE CARDIOPULMONARY PROCESS. Time of 1ST Reevaluation: 22:23 Reevaluation 1ST: Unchanged Patient Education/Counseling: Diagnosis, Treatment, Need For Follow Up Family Education/Counseling: No Family Present SEPSIS Sepsis Screen Date sepsis recognized/suspect: May 13, 2025 Time Sepsis recognized/suspect: 2134 Recent Procedure: No On Antibiotic Therapy: No Respiratory Rate >20: No Heart Rate >90: Yes Temp<36 C (96.8 F) or >38.3 C: No SBP <90 or MAP <65 mmHG: No New Acute Mental Status Change: No Is the patient on CPAP, BIPAP,: No Physician Orders Electrocardigram (05/13/25 21:31) Chest Xray 1 View (05/13/25 21:31) Electrocardigram (05/13/25 22:31) Vital Signs Date Time Temp Pulse Resp B/P (MAP) Pulse Ox O2 Delivery O2 Flow Rate FiO2 05/13/25 23:00 97.5 92 16 96/70 (79) 97 97.5 05/13/25 22:41 95 05/13/25 22:17 97.5 88 19 107/72 (84) 97 97.5 05/13/25 22:07 97.5 62 15 106/72 (83) 97 97.5 05/13/25 21:59 220 05/13/25 21:53 97.5 226 19 92/59 (70) 97 97.5 05/13/25 21:52 220 20 97 Room Air* 0 21 05/13/25 21:37 220 05/13/25 21:33 98.0 228 20 124/78 97 98.0 Departure 1 Departure Time of Disposition: 22:44 Impression: Primary Impression: SVT (supraventricular tachycardia) Disposition: ADMITTED INPATIENT Condition: Stable e-Prescriptions Metoprolol Tartrate (LOPRESSOR TABLET) 50 Mg Tb 50 MG PO BID for 30 Days, #60 TAB Prov: MAYO MOJICA 05/15/25 Comments 49-year-old female returns with 2nd episode of SVT today. Patient converted to sinus rhythm after Cardizem in the ED. Patient is stabilized in the emergency department. Patient admitted to hospitalist service for further treatment, evaluation and monitoring. Critical Care Note Critical Care Time?: No Stability Stability form required: No Heart Score Heart Score: Heart Score Response (Comments) Value History N/A 0 EKG N/A 0 Age N/A 0 Risk Factors N/A 0 Troponin N/A 0 Total 0 I personally scribed for BANDAR THOMAS MD ([email or web address]) on 05/13/25 at 21:59. Electronically submitted by Stacy Chew ([email or web address]). I personally scribed for BANDAR THOMAS MD ([email or web address]) on 05/13/25 at 22:51. Electronically submitted by Stacy Chew ([employer]). BANDAR THOMAS MD May 13, 2025 21:59
[2025-05-13] MEDS: SODIUM CHLORIDE 0.9% 1,000 ML IV ONE (22:09)
--- NOTE | 2025-05-13 22:23 | DVH ---
CLINICAL HISTORY: CHEST PAIN TECHNIQUE: Single view of the chest was obtained. COMPARISON: XY CHEST XRAY 1 VIEW on DOS: 03/07/25 FINDINGS: The heart size and pulmonary vasculature are normal. The lungs are clear. IMPRESSION: NO ACUTE CARDIOPULMONARY PROCESS.
[2025-05-13] MEDS ORDERED: MORPHINE SULFATE INJ 2 MG/ml SYRG IV PRN ×4 (23:30→23:45)
[2025-05-13] MEDS ORDERED: ONDANSETRON HCL 4 MG/2 ML VIAL IV PRN ×2 (23:30→23:45)
[2025-05-13] MEDS ORDERED: DOCUSATE SOD 100 MG CAP PO PRN ×2 (23:30→23:45)
[2025-05-13] MEDS ORDERED: HYDROcodone-ACET 5/325MG TAB PO PRN ×2 (23:30→23:45)
[2025-05-13] MEDS ORDERED: TEMAZEPAM 15 MG CAP PO PRN (23:30)
[2025-05-13] MEDS ORDERED: METOPROLOL TARTRATE 50 MG TAB PO SCH (23:30)
[2025-05-13] MEDS ORDERED: NITROGLYCERIN 0.4 MG SL TAB SL PRN ×2 (23:30→23:45)
[2025-05-13] MEDS ORDERED: ACETAMINOPHEN 325 MG TAB PO PRN ×2 (23:30→23:45)
--- NOTE | 2025-05-13 23:40 | DVHHP2 ---
Admitting Diagnosis: Chest pain History of Present Illness 49 yo female patient with hx of SVT, CHF, and HTN c/o substernal chest pain with associated palpitations. Patient was seen earlier today and was given adenosine and converted to normal sinus. While in the emergency department the patient was evaluated by the provider, As per provider: Labs, vital signs, and imagining monitored. Patient will be admitted for further evaluation and treatment. I discussed admission with the patient/family and is in agreement to treatment plan. Allergies: Coded Allergies: Latex (Verified Allergy, Unknown, 03/07/25) Penicillins (Verified Allergy, Unknown, 05/13/25) Uncoded Allergies: TDAP (Allergy, Unknown, 03/07/25) Home Meds Active Scripts Prednisone (Prednisone) 20 Mg Tab, 40 MG PO DAILY for 5 Days, #10 TAB Prov:ROLANDO CHRISTIANSON DO 03/16/25 Epinephrine (Anaphylaxis) (Auvi-Q) 0.1 Mg/0.1 Ml Inj, 0.1 MG IJ O PRN for 1 Day, #1 INJ Prov:ROLANDO CHRISTIANSON DO 03/16/25 Lisinopril (Lisinopril) 20 Mg Tab, 1 TAB PO DAILY, #90 TAB 1 Refill Prov:MARYA LYNN MD 03/07/25 Current Medications Current Medications Medications (Trade) Dose Ordered Sig/Julia Route PRN Reason Start Time Stop Time Status Last Admin Acetaminophen/ Hydrocodone Bitart (Mission 5/325MG Tab) 1 tab Q4HP PRN PO MODERATE PAIN (4-6 PAIN SCALE) 05/13/25 23:30 05/13/25 23:44 DC Temazepam (Restoril) 15 mg QHSP PRN PO FOR INSOMNIA 05/13/25 23:30 05/13/25 23:44 DC Ondansetron HCl (Zofran) 4 mg Q4HP PRN IV NAUSEA / VOMITING 05/13/25 23:30 05/13/25 23:44 DC Docusate Sodium (Colace Capsule) 100 mg BIDPRN PRN PO FOR CONSTIPATION 05/13/25 23:30 05/13/25 23:44 DC Enoxaparin Sodium (Lovenox) 40 mg DAILY SC 05/14/25 10:00 05/13/25 23:44 DC Acetaminophen (Tylenol Tablet) 650 mg Q6HP PRN PO PAIN SCALE 1-3 OR TEMP>100.4 05/13/25 23:30 05/13/25 23:44 DC Morphine Sulfate 2 mg Q4HPRN PRN IV SEVERE PAIN (7-10 PAIN SCALE) 05/13/25 23:30 05/13/25 23:44 DC Nitroglycerin (Ntrostat Sublingual) 0.4 mg Q5MINP PRN SL FOR CHEST PAIN 05/13/25 23:30 05/13/25 23:44 DC Morphine Sulfate 2 mg Q30M PRN IV FOR CHEST PAIN 05/13/25 23:30 05/13/25 23:44 DC Metoprolol Tartrate (Lopressor Tablet) 50 mg BID PO 05/13/25 23:30 05/13/25 23:44 DC Pantoprazole Sodium (Protonix) 40 mg DAILY IV 05/14/25 10:00 05/13/25 23:44 DC Enoxaparin Sodium (Lovenox) 100 mg Q12HR@0000,1200 SC 05/14/25 00:30 05/14/25 12:00 Alprazolam (Xanax Tablet) 0.5 mg Q4HPRN PRN PO ANXIETY 05/14/25 01:00 05/14/25 01:26 DC Ondansetron HCl (Zofran) 4 mg Q4HP PRN IV NAUSEA / VOMITING 05/13/25 23:45 Enoxaparin Sodium (Lovenox) 40 mg DAILY SC 05/14/25 10:00 UNV Morphine Sulfate 2 mg Q4HPRN PRN IV SEVERE PAIN (7-10 PAIN SCALE) 05/13/25 23:45 Morphine Sulfate 2 mg Q30M PRN IV FOR CHEST PAIN 05/13/25 23:45 Pantoprazole Sodium (Protonix) 40 mg DAILY IV 05/14/25 10:00 05/14/25 10:17 Acetaminophen/ Hydrocodone Bitart (Mission 5/325MG Tab) 1 tab Q4HP PRN PO MODERATE PAIN (4-6 PAIN SCALE) 05/13/25 23:45 Temazepam (Restoril) 15 mg QHSP PRN PO FOR INSOMNIA 05/13/25 23:45 05/14/25 01:37 Docusate Sodium (Colace Capsule) 100 mg BIDPRN PRN PO FOR CONSTIPATION 05/13/25 23:45 Acetaminophen (Tylenol Tablet) 650 mg Q6HP PRN PO PAIN SCALE 1-3 OR TEMP>100.4 05/13/25 23:45 Nitroglycerin (Ntrostat Sublingual) 0.4 mg Q5MINP PRN SL FOR CHEST PAIN 05/13/25 23:45 Metoprolol Tartrate (Lopressor Tablet) 50 mg BID PO 05/13/25 23:45 05/14/25 10:17 Alprazolam (Xanax Tablet) 0.5 mg Q4HPRN PRN PO ANXIETY 05/14/25 01:30 05/14/25 10:34 Review of Systems Constitutional: denies chills, denies fever, denies malaise Eyes: denies eye pain, denies vision change ENT: denies ear pain, denies headache, denies nasal congestion, denies painful swallowing, denies voice change Cardiovascular: denies chest pain, denies edema, denies orthopnea, denies palpitations, denies paroxysmal nocturnal dyspnea Respiratory: denies cough, denies shortness of breath Gastrointestinal: denies constipation, denies diarrhea, denies nausea, denies vomiting Genitourinary: denies dysuria, denies frequent urination, denies urethral discharge Musculoskeletal: denies back pain, denies joint pain, denies muscle pain Skin: denies bruising, denies itching, denies rash Neurological: denies focal weakness, denies headache, denies sensory changes Psychiatric: denies anxiety, denies depression Endocrine: denies polydipsia, denies polyuria Hematologic/Lymphatic: denies easy bleeding, denies easy bruising, denies enlarged lymph nodes Allergic/Immunologic: denies allergy, denies hives Vital Signs Vital Signs Date Time Temp Pulse Resp B/P (MAP) Pulse Ox O2 Delivery O2 Flow Rate FiO2 05/14/25 18:00 85 14 144/90 (108) 98 05/14/25 12:34 98.4 98.4 05/14/25 07:00 Room Air* 0 21 Physical Exam General Appearance: alert, no distress HEENT: EOMI, PERRLA, normal external inspect of ears, no icterus, no nasal drainage Neck: no carotid bruit, no jugular venous distention (JVD), no lymphadenopathy Chest: normal thorax Respiratory: clear to auscultation, normal air movement Cardiovascular: regular rate and rhythm, no diastolic murmur, no jugular venous distention (JVD), no rub, no systolic murmur Abdominal: soft, no hepatomegaly, no mass, no splenomegaly, no tenderness Genitourinary: grossly normal external Musculoskeletal: no joint tenderness, no swelling Extremities: normal pulses, no calf tenderness, no clubbing, no cyanosis, no edema Skin: no bruising, no jaundice, no rash Neurological: alert, No focal deficit SEPSIS Sepsis Screen Date sepsis recognized/suspect: May 13, 2025 Time Sepsis recognized/suspect: 2134 Recent Procedure: No On Antibiotic Therapy: No Respiratory Rate >20: No Heart Rate >90: Yes Temp<36 C (96.8 F) or >38.3 C: No SBP <90 or MAP <65 mmHG: No New Acute Mental Status Change: No Is the patient on CPAP, BIPAP,: No Physician Orders Electrocardigram (05/13/25 21:31) Chest Xray 1 View (05/13/25:) Electrocardigram (05/13/25:31) Admit (05/13/25 23:27) Code Status (05/13/25 23:27) Condition: Fair (05/13/25 23:27) Sequential Compression Device (05/13/25 ) *Consult Dr. Boubacar Barron (05/13/25 23:27) Stat Ekg For Chest Pain (05/13/25 23:27) Notify Md Of Changes From Base (05/13/25 23:27) Estate Attorney For 24 Hours (05/13/25 23:27) Emergency Dysrhythmia Protocol (05/13/25 23:27) Rhythm Strips Once Every Shift (05/13/25 23:27) Oxygen By Nasal Cannula (05/13/25 23:27) Enoxaparin Sodium (Lovenox) (05/14/25 00:30) Communication Order (05/14/25 00:49) Ondansetron Hcl (Zofran) (05/13/25 23:45) Morphine Sulfate Injection (05/13/25 23:45) Morphine Sulfate Injection (05/13/25 23:45) Pantoprazole (Protonix) (05/14/25 10:00) Hydrocodone-Acet 5/325mg Tab (Mission 5/32 (05/13/25 23:45) Temazepam (Restoril) (05/13/25 23:45) Docusate Sodium Capsule (Colace Capsule) (05/13/25 23:45) Acetaminophen Tablet (Tylenol Tablet) (05/13/25 23:45) Nitroglycerin Sublingual (Ntrostat Subli (05/13/25 23:45) Metoprolol Tartrate Tablet (Lopressor Ta (05/13/25 23:45) Alprazolam Tablet (Xanax Tablet) (05/14/25 01:30) Echo 2d Mode Cardiac Dop (05/14/25 23:27) Covid19 Antigen Zulema (05/14/25 ) Rapid Influenza A&B (05/14/25 09:43) Drug Screen (05/14/25 09:46) Ct Angio Chest Contrast (05/14/25 12:53) Bilat Lower Dvt (05/14/25 12:53) Cl Left Heart Cath (05/14/25 16:05) Electrocardigram (05/14/25 16:19) Post Cath Vital Signs Q 15min (05/14/25 17:13) Post Cath Activity Protocol (05/14/25 17:13) Communication Order (05/14/25 17:13) Cardiac Diet-2gna,Lofat,Lochol (05/14/25 Dinner) Vital Signs Date Time Temp Pulse Resp B/P (MAP) Pulse Ox O2 Delivery O2 Flow Rate FiO2 05/14/25 18:00 85 14 144/90 (108) 98 05/14/25 17:45 84 14 144/90 (108) 100 05/14/25 17:30 75 14 137/95 (109) 95 05/14/25 17:15 84 16 142/97 (112) 98 05/14/25 12:34 98.4 71 16 105/72 (83) 97 98.4 05/14/25 11:17 71 105/72 05/14/25 10:17 76 148/104 05/14/25 08:30 98.0 76 18 148/104 (119) 97 98.0 05/14/25 08:00 72 05/14/25 07:00 Room Air* 0 21 05/14/25 06:02 Room Air* 0 21 05/14/25 06:02 97.8 76 18 103/66 (78) 94 97.8 05/14/25 05:18 97.8 76 18 103/66 (78) 94 97.8 05/14/25 03:00 97.5 98 18 133/54 (80) 97 97.5 05/14/25 01:00 97.5 78 16 110/73 (85) 97 97.5 05/13/25 23:00 97.5 92 16 96/70 (79) 97 97.5 05/13/25 22:41 95 05/13/25 22:17 97.5 88 19 107/72 (84) 97 97.5 05/13/25 22:07 97.5 62 15 106/72 (83) 97 97.5 05/13/25 21:59 220 05/13/25 21:53 97.5 226 19 92/59 (70) 97 97.5 05/13/25 21:52 220 20 97 Room Air* 0 21 05/13/25 21:37 220 05/13/25 21:33 98.0 228 20 124/78 97 98.0 Laboratory Tests Test 05/14/25 04:45 White Blood Count 10.5 10^3/uL (4.4-10.8) Medications Medications Dose Ordered Sig/Julia Route Start Time Stop Time Status Last Admin Dose Admin Pantoprazole Sodium 40 mg DAILY IV 05/14/25 10:00 05/14/25 10:17 Results Labs Test 05/14/25 10:35 05/14/25 04:45 05/14/25 01:40 05/14/25 00:26 Range/Units Prothrombin Time 10.2 9.3-11.8 sec Prothrombin Time INR 0.96 0.9-1.15 Activated Partial Thromboplast Time 28.9 24.5-34.5 SEC D-Dimer, Quantitative 2.04 H 0.0-0.49 mg/L FEU White Blood Count 10.5 4.4-10.8 10^3/uL Red Blood Count 4.05 4.0-5.20 10^6/uL Hemoglobin 12.4 12.2-16.2 g/dL Hematocrit 37.0 # 36.0-46.0 % Mean Corpuscular Volume 91.4 80.0-100.0 fL Mean Corpuscular Hemoglobin 30.5 28.0-32.0 pg Mean Corpuscular Hemoglobin Concent 33.4 32.0-36.0 g/dL Red Cell Distribution Width 14.0 11.8-14.3 % Platelet Count 305 140-450 10^3/uL Mean Platelet Volume 8.0 6.9-10.8 fL Neutrophils (%) (Auto) 61.8 37.0-80.0 % Lymphocytes (%) (Auto) 27.1 10.0-50.0 % Monocytes (%) (Auto) 7.8 0.0-12.0 % Eosinophils (%) (Auto) 2.8 0.0-7.0 % Basophils (%) (Auto) 0.5 0.0-2.0 % Neutrophils # (Auto) 6.5 1.6-8.6 10 ^3/uL Lymphocytes # (Auto) 2.8 0.4-5.4 10 ^3/uL Monocytes # (Auto) 0.8 0-1.3 10 ^3/uL Eosinophils # (Auto) 0.3 0-0.8 10 ^3/uL Basophils # (Auto) 0.1 0-0.2 10 ^3/uL Nucleated Red Blood Cells 0.0 % Sodium Level 139 136-145 mmol/L Potassium Level 3.9 3.5-5.1 mmol/L Chloride Level 108 H 98-107 mmol/L Carbon Dioxide Level 21 20-31 mmol/L Anion Gap 10 5-15 Blood Urea Nitrogen 16 9-23 mg/dL Creatinine 0.71 0.550-1.02 mg/dL Glomerular Filtration Rate Calc 103 >90 mL/min BUN/Creatinine Ratio 22.5 H 10.0-20.0 Serum Glucose 109 H 74-106 mg/dL Calcium Level 9.0 8.7-10.4 mg/dL Total Bilirubin 0.3 0.2-1.0 mg/dL Aspartate Amino Transferase (AST) 25 13-40 U/L Alanine Aminotransferase (ALT) 26 7-40 U/L Alkaline Phosphatase 73 46-116 U/L B-Type Natriuretic Peptide 76.79 0-100 pg/mL Total Protein 6.4 5.7-8.2 g/dL Albumin 3.8 3.2-4.8 g/dL Triglycerides Level 59 < 150 mg/dL Cholesterol Level 143 < 200 mg/dL LDL Cholesterol 101 H < 100 mg/dL HDL Cholesterol 45 40-59 mg/dL Thyroid Stimulating Hormone (TSH) 1.35 0.55-4.78 uIU/mL Group A Streptococcus Rapid Negative Troponin I High Sensitivity 239 *H </=34 ng/L Plan 1. SVT (received adenosine in ER) Monitor, cardiology consult 2. Palpitations Monitor, cardiology consult 3. Benign essential HTN Monitor, restart lisinopril, antihypertensives 4. Acute on chronic systolic CHF Monitor, cardiology consult 5. Hx drug abuse Monitor, PPI, SVT prophylaxis 6. Elevated d dimer Monitor, CTA to r/o PE Plan discussed with: Patient, Other MICHELLE CHANEY NP May 13, 2025 23:40
[2025-05-14] VITALS (15 sets, daily range): BP systolic 103–148; BP diastolic 66–104; PULSE 71–96; RESP 14–21; TEMP 97.8–98.4; O2SAT 92–100
[2025-05-14] MEDS ORDERED: ALPRAZolam 0.5 MG TAB PO PRN (01:00)
[2025-05-14] MEDS: ALPRAZolam 0.5 MG TAB PO PRN (01:34)
[2025-05-14] MEDS: ENOXAPARIN SOD 100 MG/1 ML SYRINGE SC SCH (01:36)
[2025-05-14] MEDS: TEMAZEPAM 15 MG CAP PO PRN (01:37)
[2025-05-14 03:15] LABS: Rapid Strep A Screen-Throat Negative
[2025-05-14 05:17] LABS: Hematocrit 37.0 % (36.0-46.0); Hemoglobin 12.4 g/dL (12.2-16.2); Mean Corpuscular Hemoglobin 30.5 pg (28.0-32.0); Mean Corpuscular Volume 91.4 fL (80.0-100.0); Nucleated Red Blood Cells % 0.0 %
[2025-05-14 06:59] LABS: Alanine Aminotransferase 26 U/L (7-40); Alkaline Phosphatase 73 U/L (46-116); Anion Gap 10 (5-15); BUN/Creatinine Ratio 22.5 (10.0-20.0); Blood Urea Nitrogen 16 mg/dL (9-23); Calcium 9.0 mg/dL (8.7-10.4); Carbon Dioxide 21 mmol/L (20-31); Potassium 3.9 mmol/L (3.5-5.1); Sodium 139 mmol/L (136-145); Total Protein 6.4 g/dL (5.7-8.2)
[2025-05-14 07:00] LABS: Albumin 3.8 g/dL (3.2-4.8); Bilirubin, Total 0.3 mg/dL (0.2-1.0)
[2025-05-14 07:02] LABS: Chloride 108 mmol/L (98-107); Glucose 109 mg/dL (74-106)
--- NOTE | 2025-05-14 09:58 | DVHINCON2 ---
Date of service: May 14, 2025 History of Present Illness HPI Patient is a 49-year-old female who presented with repeated episodes of palpitation. Reportedly, the patient presented with palpitation and was found to have SVT. She was given adenosine and later went home. While at home she again experienced palpitations and came back to the hospital and was given adenosine again. Review of the EKGs reveals episode of SVT. She also mentions that she is experiencing some sore throat for half a day. Denies fevers denies change in appetite. She mentions less mobility secondary to old on right leg injury/fracture. She mentions prior history of heart failure (in ). She mentions that she does not follow with Cardiology as outpatient. Review of outside records of 2017 reveals ejection fraction of 30-45%. Patient herself me ntions that the heart failure improved and was resolved later. Patient mentions that she was in hospital around a year ago for the right leg fracture and at that point she was told that her ejection fraction was normalized at 75%. No record of the ejection fraction of 75% is available to review. Patient does have old history of methamphetamine abuse but mentions that her last use was around 2 years ago. Does have noncompliance history. Mentions the last time she saw her outside physician (PCP) was over a year ago in [place]. Does not follow with any physicians around here. Mentions that she only takes lisinopril for high blood pressure. Cardiology is involved for cardiac aspects of care. Patient denies any chest pains. Denies recent leg swellings. Does complain of poor exertional capacity secondary to gaining weight (as per patient). Denies loss of consciousness. Home Meds Active Scripts Prednisone (Prednisone) 20 Mg Tab, 40 MG PO DAILY for 5 Days, #10 TAB Prov:ROLANDO CHRISTIANSON DO 03/16/25 Epinephrine (Anaphylaxis) (Auvi-Q) 0.1 Mg/0.1 Ml Inj, 0.1 MG IJ O PRN for 1 Day, #1 INJ Prov:ROLANDO CHRISTIANSON DO 03/16/25 Lisinopril (Lisinopril) 20 Mg Tab, 1 TAB PO DAILY, #90 TAB 1 Refill Prov:MARYA LYNN MD 03/07/25 Past Medical History Others Past medical history includes CHF (as per patient was resolved), hypertension, history of SVT, old history of tubal ligation surgery, asthma (many years ago), morbid obesity, DJD, history of right leg fracture and noncompliance. Patient Family History: Patient reports no known family medical history. Smoker: Positive (Vapes) Alocohol: None Drugs: Amphetimines (mentions that stopped 2 years ago) Lives with: With family Review of Systems Constitutional: Malaise Ears, Nose, & Throat: No symptom reported Eyes: No symptom reported Cardiovascular: Chest Pain, Palpitations All Other Systems Fourteen point review of system was performed. Relevant findings as per above and as per HPI. H&P Exam Vital Signs Vital Signs Date Time Temp Pulse Resp B/P (MAP) Pulse Ox O2 Delivery O2 Flow Rate FiO2 05/14/25 08:30 98.0 76 18 148/104 (119) 97 98.0 05/14/25 06:02 Room Air* 0 21 General Appeara: Well developed, Obese Head Exam: Normal inspection Neck Exam: Normal inspection Eye Exam: bilateral eye PERRL Nasal Exam: Normal inspection Mouth: Normal Inspection Pulmonary/Respiratory: Rhonci Cardiovascular/Chest: Normal Rhythm, Systolic murmur Peripheral Pulses: 2+ carotid (R), 2+ carotid (L), 2+ femoral (R), 2+ femoral (L), 2+ dorsalis pedis (R), 2+ dorsalis pedis (L), 2+ Radial (R) Abdominal Exam: Normal bowel sounds, Soft Neuro/Mental St: Alert, Oriented Appearance: Appropriate appearance Eye contact/ Speech: Cooperative Labs/Xrays Labs Test 05/14/25 04:45 05/14/25 01:40 05/14/25 00:26 Range/Units White Blood Count 10.5 4.4-10.8 10^3/uL Red Blood Count 4.05 4.0-5.20 10^6/uL Hemoglobin 12.4 12.2-16.2 g/dL Hematocrit 37.0 # 36.0-46.0 % Mean Corpuscular Volume 91.4 80.0-100.0 fL Mean Corpuscular Hemoglobin 30.5 28.0-32.0 pg Mean Corpuscular Hemoglobin Concent 33.4 32.0-36.0 g/dL Red Cell Distribution Width 14.0 11.8-14.3 % Platelet Count 305 140-450 10^3/uL Mean Platelet Volume 8.0 6.9-10.8 fL Neutrophils (%) (Auto) 61.8 37.0-80.0 % Lymphocytes (%) (Auto) 27.1 10.0-50.0 % Monocytes (%) (Auto) 7.8 0.0-12.0 % Eosinophils (%) (Auto) 2.8 0.0-7.0 % Basophils (%) (Auto) 0.5 0.0-2.0 % Neutrophils # (Auto) 6.5 1.6-8.6 10 ^3/uL Lymphocytes # (Auto) 2.8 0.4-5.4 10 ^3/uL Monocytes # (Auto) 0.8 0-1.3 10 ^3/uL Eosinophils # (Auto) 0.3 0-0.8 10 ^3/uL Basophils # (Auto) 0.1 0-0.2 10 ^3/uL Nucleated Red Blood Cells 0.0 % Sodium Level 139 136-145 mmol/L Potassium Level 3.9 3.5-5.1 mmol/L Chloride Level 108 H 98-107 mmol/L Carbon Dioxide Level 21 20-31 mmol/L Anion Gap 10 5-15 Blood Urea Nitrogen 16 9-23 mg/dL Creatinine 0.71 0.550-1.02 mg/dL Glomerular Filtration Rate Calc 103 >90 mL/min BUN/Creatinine Ratio 22.5 H 10.0-20.0 Serum Glucose 109 H 74-106 mg/dL Calcium Level 9.0 8.7-10.4 mg/dL Total Bilirubin 0.3 0.2-1.0 mg/dL Aspartate Amino Transferase (AST) 25 13-40 U/L Alanine Aminotransferase (ALT) 26 7-40 U/L Alkaline Phosphatase 73 46-116 U/L Total Protein 6.4 5.7-8.2 g/dL Albumin 3.8 3.2-4.8 g/dL Group A Streptococcus Rapid Negative Troponin I High Sensitivity 239 *H </=34 ng/L Assessment/Plan Plan Patient is a 49-year-old female who presented with repeated episodes of palpitation. Reportedly, the patient presented with palpitation and was found to have SVT. She was given adenosine and later went home. While at home she again experienced palpitations and came back to the hospital and was given adenosine again. Review of the EKGs reveals episode of SVT. She also mentions that she is experiencing some sore throat for half a day. Denies fevers denies change in appetite. She mentions less mobility secondary to old on right leg injury/fracture. She mentions prior history of heart failure (in ). She mentions that she does not follow with Cardiology as outpatient. Review of outside records of 2017 reveals ejection fraction of 30-45%. Patient herself mentions that the heart failure improved and was resolved later. Patient mentions that she was in hospital around a year ago for the right leg fracture and at that point she was told that her ejection fraction was normalized at 75%. No record of the ejection fraction of 75% is available to review. Patient does have old history of methamphetamine abuse but mentions that her last use was around 2 years ago. Does have noncompliance history. Mentions the last time she saw her outside physician (PCP) was over a year ago in [place]. Does not follow with any physicians around here. Mentions that she only takes lisinopril for high blood pressure. Cardiology is involved for cardiac aspects of care. Patient denies any chest pains. Denies recent leg swellings. Does complain of poor exertional capacity secondary to gaining weight (as per patient). Denies loss of consciousness. Morbidly obese female. Lying flat in bed. No JVD. Mucosa is pink and wet. No carotid bruit. Not using accessory muscles of breathing. Scattered rhonchi in the lungs is heard. No rales in the lungs is heard. Cardiac: Regular, no thrill/gallop. Abdomen is soft but obese. Bowel sound is positive. There is no abdominal tenderness. Secondary to body habitus I can not comment on mass/presence of hepatomegaly? 1+ edema bilaterally is seen. Dorsalis pedis is 2+ bilateral Past medical history includes CHF (as per patient was resolved), hypertension, history of SVT, old history of tubal ligation surgery, asthma (many years ago), morbid obesity, DJD, history of right leg fracture and noncompliance. Nuclear stress test of May 2016 (outside record) revealed ejection fraction of 30% and mild fixed defect along the base. Echocardiogram of 2017 (outside record) revealed ejection fraction of 45% WBC: 10.5 Hemoglobin: 12.4 Creatinine: 0.71 Potassium: 3.9 Troponin (high sensitive): 239 - 235 - 239 BNP: 76.79 TSH: 1.35 D-Dimer: 2.04 Chest x-ray revealed: IMPRESSION: NO ACUTE CARDIOPULMONARY PROCESS. CTA of lungs revealed: IMPRESSION: No pulmonary embolism. No acute thoracic finding. Venous duplex of lower ext revealed: IMPRESSION: NO SONOGRAPHIC EVIDENCE FOR DEEP VENOUS THROMBOSIS IN THE BILATERAL LOWER EXTREMITY VEINS. EKG revealed SVT. Repeat EKG reveals sinus rhythm with no specific ST-T changes Telemetry reveals sinus rhythm Echocardiogram revealed: Left ventricle: Mild concentric left ventricular hypertrophy was seen. LVEF was around 60%. There was no gross wall motion abnormality. Diastolic function was considered normal for age. Right ventricle was normal-sized with normal systolic function. Both atria were normal-sized. Aortic valve: Aortic valve was trileaflet. There was no aortic insufficiency/stenosis. There was trace mitral/tricuspid/pulmonary valve regurgitation. Right ventricular systolic pressure was less than 35 mm Hg (norm al). There was trace pericardial effusion. Patient is a 49-year-old female who presented with repeated episodes of tachyarrhythmia which responded to adenosine. EKG at the time revealed SVT. Patient is found to have minimally elevated/flat troponin. Patient does have old history of heart failure. As per history, the patient's heart failure was resolved later. She also has old history of methamphetamine abuse which could have contributed to the clinical picture? Minimally elevated flat troponin is not typical of acute coronary syndrome. Presentation was also not typical of acute coronary syndrome. Elevated troponin in a tachyarrhythmia most likely reflects demand ischemia. Patient does have history of poor functional capacity which she attributed to right leg injury. Is it possible that the patient had DVT/pulmonary emboli resulting in tachyarrhythmia? She also complains of some sore throat and intercurrent disease/URI could have contributed to the clinical picture? D-Dimer was elevated. CTA of lungs ruled out Pulmonary Emboli. Venous duplex of lower ext ruled out DVT. Echo revealed preserved LV systolic function. As trop is elevated and as EKG during SVT revealed ST depression, ischemic work up is suggested. Will suggest Cardiac Catheterization. Non-stemi is considered and needs to be ruled out. Narrow complex tachyarrhythmia SVT Abnormal troponin Heart failure, history of Morbid obesity URI Substance abuse, history of Hypertension Poor functional capacity Old history of tubal ligation Cardiac suggestion for management: Manage on telemetry Follow-up electrolytes and kidney function tests and correct abnormalities. Keep potassium above 4 and magnesium above 2 Urine drug screen Beta blockers Evaluation for URI/COVID as per primary team As trop is elevated and as EKG during SVT revealed ST depression, ischemic work up is suggested (Non-stemi is considered and needs to be ruled out). Will suggest Cardiac Catheterization. Lifestyle and risk factor modifications Further evaluation and management depends on the above and clinical course Thank you for consultation A total of 75 minutes was spent reviewing the patient record, examining the patient, making a diagnostic and therapeutic plan, discussing this plan with medical personnel, following up on diagnostic studies and following the patient for clinical stability excluding any and all procedures. At least 50% of this time was spent in direct, [id number] contact. Thank you for allowing me to participate in this patient's care. Further recommendations will depend on patient's clinical course. Please do not hesitate to contact me if you have any questions or concerns. This medical document was created using electronic medical record system with [employer] computerized dictation system. Although this document has been carefully reviewed, there may still be some phonetic and typographical errors. These areas are purely typographical due to the imperfection of the software programs, and do not reflect any compromise in the patient's medical care. Plan discussed with: Patient, Other (nurse) KIM VAUGHN MD May 14, 2025 09:58
[2025-05-14] MEDS ORDERED: PANTOPRAZOLE 40 MG/10 ML VIAL INJ IV SCH (10:00)
[2025-05-14] MEDS ORDERED: ENOXAPARIN SOD 40 MG/0.4 ML SYRINGE SC SCH ×2 (10:00)
[2025-05-14] MEDS: METOPROLOL TARTRATE 50 MG TAB PO SCH (10:17)
[2025-05-14] MEDS: PANTOPRAZOLE 40 MG/10 ML VIAL INJ IV SCH (10:17)
--- NOTE | 2025-05-14 11:48 | DVHPN2 ---
Progress Note - Dictate Date Seen: May 14, 2025 Medical Necessity Reason Pt with a Central, PICC or Fol: No vital signs Vital Sign Date Time Temp Pulse Resp B/P (MAP) Pulse Ox O2 Delivery O2 Flow Rate FiO2 05/14/25 10:17 76 148/104 05/14/25 08:30 98.0 18 97 98.0 05/14/25 06:02 Room Air* 0 21 Total Intake and Output 05/13/25 05/13/25 05/14/25 15:00 23:00 07:00 Intake Total 1000 ml Balance 1000 ml medications Current Medications Medications Dose Ordered Sig/Julia Route Start Time Stop Time Status Last Admin Dose Admin Enoxaparin Sodium 100 mg Q12HR@0000,1200 SC 05/14/25 00:30 05/14/25 01:36 100 MG Ondansetron HCl 4 mg Q4HP PRN IV 05/13/25 23:45 Enoxaparin Sodium 40 mg DAILY SC 05/14/25 10:00 UNV Morphine Sulfate 2 mg Q4HPRN PRN IV 05/13/25 23:45 Morphine Sulfate 2 mg Q30M PRN IV 05/13/25 23:45 Pantoprazole Sodium 40 mg DAILY IV 05/14/25 10:00 05/14/25 10:17 40 MG Acetaminophen/ Hydrocodone Bitart 1 tab Q4HP PRN PO 05/13/25 23:45 Temazepam 15 mg QHSP PRN PO 05/13/25 23:45 05/14/25 01:37 15 MG Docusate Sodium 100 mg BIDPRN PRN PO 05/13/25 23:45 Acetaminophen 650 mg Q6HP PRN PO 05/13/25 23:45 Nitroglycerin 0.4 mg Q5MINP PRN SL 05/13/25 23:45 Metoprolol Tartrate 50 mg BID PO 05/13/25 23:45 05/14/25 10:17 50 MG Alprazolam 0.5 mg Q4HPRN PRN PO 05/14/25 01:30 05/14/25 10:34 0.5 MG objective General Appearance: alert, no distress HEENT: EOMI, PERRLA, normal external inspect of ears, no icterus, no nasal drainage Neck: no carotid bruit, no jugular venous distention (JVD), no lymphadenopathy Chest: normal thorax Respiratory: clear to auscultation, normal air movement Cardiovascular: regular rate and rhythm, no diastolic murmur, no jugular venous distention (JVD), no rub, no systolic murmur Abdominal: soft, no hepatomegaly, no mass, no splenomegaly, no tenderness Genitourinary: grossly normal external Musculoskeletal: no joint tenderness, no swelling Extremities: normal pulses, no calf tenderness, no clubbing, no cyanosis, no edema Skin: no bruising, no jaundice, no rash Neurological: alert, No focal deficit laboratory and microbiology Laboratory Tests 05/14/25 04:45 Test 05/14/25 04:45 Range/Units Serum Glucose 109 H 74-106 mg/dL Problem List 1. SVT (received adenosine in ER) Monitor, cardiology consult 2. Palpitations Monitor, cardiology consult 3. Benign essential HTN Monitor, restart lisinopril, antihypertensives 4. Acute on chronic systolic CHF Monitor, cardiology consult 5. Hx drug abuse Monitor, PPI, SVT prophylaxis 6. Elevated d dimer Monitor, CTA to r/o PE Assessment/Plan Subjective: Patient is awake and alert. Objective: Patient was admitted for SVT yesterday. She was previously seen in the emergency room. They did give her adenosine. Patient then returned to the emergency room due to recurrent palpitations. She has a history of CHF and a history of prior drug use. Plan: Cardiology consult. Obtain echocardiogram. Start diuretics as needed. Monitor on EKG. Obtain urine drug screen. Plan discussed with: Patient, Other MICHELLE CHANEY NP May 14, 2025 11:48
[2025-05-14 11:55] LABS: INR 0.96 (0.9-1.15); Partial Thromboplastin Time 28.9 SEC (24.5-34.5); Prothrombin Time 10.2 sec (9.3-11.8)
[2025-05-14] MEDS ORDERED: IOHEXOL 350 MG/ML 100ML IJ ONE ×2 (13:17→13:50)
--- NOTE | 2025-05-14 13:59 | DVH ---
CLINICAL HISTORY: rule out dvt TECHNIQUE: Color and duplex doppler imagine of the bilateral lower extremity veins was performed. Vessel compression and augmentation if possible was also performed. COMPARISON: None FINDINGS: Right Lower Extremity: Right common femoral vein: Normal compressibility and flow. Right superficial femoral vein: Normal compressibility and flow. Right popliteal vein: Normal compressibility and flow. Left Lower Extremity: Left common femoral vein: Normal compressibility and flow. Left superficial femoral vein: Normal compressibility and flow. Left popliteal vein: Normal compressibility and flow. IMPRESSION: NO SONOGRAPHIC EVIDENCE FOR DEEP VENOUS THROMBOSIS IN THE BILATERAL LOWER EXTREMITY VEINS.
--- NOTE | 2025-05-14 15:34 | DVHSR ---
APPROVED REPORT EXAM: Two-dimensional and M-mode echocardiogram with Doppler and color Doppler. Blood Pressure: 103/66 mmHg INDICATION Chest Pain RISK FACTORS Obesity: Height: 5'3", Weight: 236 DIMENSIONS LVDd 4.7 (3.8-5.7cm) LA (2D) 3.8 (1.9-4.0cm) Aortic Root 3.2 (2.0-3.7cm) LVDs 3.2 (2.5-4.0cm) LA (MM) (1.9-4.0cm) Aortic Cusp Exc 1.8 (1.5-2.0cm) EF (%) 55.0 (55-70%) Rt. Atrium 3.4 (1.9-4.0cm) Asc. Aorta cm IVSd 1.1 (0.7-1.1cm) RV (D) 3.4 (1.8-2.4cm) PWd 1.0 (0.7-1.1cm) Mitral Valve Mitral Mitral Stenosis E wave 0.68m/s MV Mean GR. mmHg A wave 0.97m/s MV Peak GR. mmHg E/A ratio 0.7 2D MVA cm2 DECEL Time 187ms PRESS 1/2 Time ms Aortic Valve Aortic Valve Aortic Stenosis V1 0.87m/s AO Mean GR. 3mmHg V2 1.11m/s AO Peak GR. 5mmHg LVOT Diameter 2.4 (1.8-2.4cm) Doppler ANNY 3.54cm2 Pulmonic Valve V2 0.75m/s Tricuspid Valve TR Velocity 2.19m/s RVSP 27mmHg Other Information Technically limited study due to body habitus. Conclusion Left ventricle: Mild concentric left ventricular hypertrophy was seen. LVEF was around 60%. There was no gross wall motion abnormality. Diastolic function was considered normal for age. Right ventricle was normal-sized with normal systolic function. Both atria were normal-sized. Aortic valve: Aortic valve was trileaflet. There was no aortic insufficiency/stenosis. There was trace mitral/tricuspid/pulmonary valve regurgitation. Right ventricular systolic pressure was less than 35 mm Hg (normal). There was trace pericardial effusion.
--- NOTE | 2025-05-14 15:43 | DVH ---
CTA Chest with intravenous contrast INDICATION: Rule out pulmonary embolism COMPARISON: XY CHEST XRAY 1 VIEW on DOS: 05/13/25, XY CHEST XRAY 1 VIEW on DOS: 03/07/25 TECHNIQUE: Multidetector spiral CTA of the chest was performed of the chest with intravenous contrast. PULMONARY ANGIOGRAPHY PROTOCOL was utilized using a bolus- tracking technique centered on the main pulmonary artery. Axial, coronal and sagittal multiplanar and MIP reformats were performed. Radiation Dose : 1. Chest: CTDI volume is 26.64 mGy. Dose-length product is 2.89 mGy*cm The dose indicators for CT are the volume Computed Tomography (CT) Dose Index (CTDIvol) and the Dose Length Product (DLP), and are measured in units of mGy and mGy-cm, respectively. These indicators are not patient dose, but values generated from the CT scanner acquisition factors. The report includes radiation exposure data for exposures received during this examination. FINDINGS: Pulmonary artery: No pulmonary embolism Lower neck: Normal thyroid. Lungs: No focal consolidation, pleural effusion or pneumothorax. Heart/Vascular Structures: Vascular calcifications of the aorta. Coronary artery calcifications. Cardiomegaly. Lymph Nodes: No adenopathy Pleura: No pleural effusion or significant pneumothorax. Musculoskeletal: No acute osseous abnormality. Degenerative changes of the spine. Soft tissues: Normal. Upper abdomen: Limited portions of the upper abdomen are unremarkable. IMPRESSION: No pulmonary embolism. No acute thoracic finding.
[2025-05-14 16:02] LABS: Triglycerides 59 mg/dL (< 150)
[2025-05-14 16:04] LABS: Cholesterol 143 mg/dL (< 200); HDL Cholesterol 45 mg/dL (40-59)
[2025-05-14] MEDS ORDERED: IODIXANOL 320MG/ML 100ML BTL IV ONE (16:11)
[2025-05-14] MEDS ORDERED: LIDOCAINE 2%HCL (LOCAL ANESTH.) INJ 20ML MDV ONE (16:17)
[2025-05-14] MEDS ORDERED: SODIUM CHL 0.9% 0 ML ONE (16:17)
[2025-05-14] MEDS ORDERED: ANGIOMAX 250 MG VIAL IV ONE (16:17)
[2025-05-14] MEDS ORDERED: VERAPAMIL 2.5MG/ML INJ 2ML VIAL IV ONE (16:17)
[2025-05-14] MEDS ORDERED: HEPARIN SODIUM (PORCINE) 5000 UNITS/ML 1ML VIAL ONE (16:17)
[2025-05-14] MEDS ORDERED: MIDAZOLAM HCL 2MG/2ML 2ml VIAL (1mg/ml) ONE (16:20)
[2025-05-14] MEDS ORDERED: fentaNYL CITRATE 100 MCG/2 ML VL ONE (16:20)
--- NOTE | 2025-05-14 17:18 | DVHOP2 ---
Operative Report Procedures performed: Left heart catheterization and bilateral coronary angiogram Moderate sedation Ultrasound-guided radial artery access Diagnosis: Nonobstructive coronary artery disease (minor luminal irregularities) with tortuous LAD (in favor hypertensive heart disease) LVEF of 60% with normal EDP Cardiac suggestion for management: Optimized medical therapy Lifestyle and risk factor modification Findings: LVEF: 60% LVEDP: 11 mm Hg There was no transaortic valve pressure gradient Left main: Left main was coming off the left sinus of Valsalva. It was free of disease. LAD: LAD was coming off the left main. It had a tortuous course. It provided a large 1st diagonal. LAD throughout its course and branches revealed minor luminal irregularities. LCX: LCX was coming off the left main. It was the dominant vessel and provided left posterolateral branch/left PDA. OM1 and OM2 were large-sized/caliber vessels. OM3 was small-caliber vessel. Left posterolateral branch was large caliber vessel. LPDA was a medium-sized/caliber vessel. LCX throughout its course and branches revealed minor luminal irregularities. RCA: RCA was coming off the right sinus of Valsalva. It was a small to medium- sized vessel. It was nondominant. RCA revealed minor luminal irregularities. Presentation: Patient is a 49-year-old female who presented to the hospital with repeated palpitations and narrow complex tachycardia. She responded to adenosine. While being managed, the patient was found to have increased troponin. It is of note that the patient had history of systolic heart failure back in 2016. As per patient, her left ventricular systolic function had improved later. She has not been compliant with medication and followups. She does have old history of methamphetamine abuse. D-dimer was elevated (CT angio of the lungs was negative for pulmonary emboli and venous Doppler of lower extremities was negative for DVT). Echocardiogram revealed preserved left vent ricular systolic function. Patient was sent for cardiac catheterization Procedure: After obtaining informed consent, the patient was brought to the [facility]. She was prepped and draped in sterile fashion. Right radial artery was used for access site. 2 mg of Versed and 75 mcg of fentanyl were used for moderate sedation. Using Seldinger technique, the right radial artery was accessed and a 6 Japanese slender sheath was inserted into it. 2.5 mg of verapamil and 100 mcg of nitroglycerin were given as a cocktail into right radial sheath. 5000 units of heparin was given peripherally. A 5 Japanese tiger 4 diagnostic catheter was used to perform left heart catheterization (obtaining pressures and performing left ventriculography) and left coronary angiography. A 6 Japanese JR4 diagnostic catheter was used to perform right coronary angiography. There was no indication for any transcatheter revascularization. Total bleeding was less than 5 mL. There was no dissection/hematoma/perforation. Right radial artery access site was managed by deploying a TR band. Patient tolerated the procedure with no complication Fluoroscopy time: 3.9 minutes contrast: 65 mL of Visipaque KIM VAUGHN MD May 14, 2025 17:18
[2025-05-15] MEDS: ENOXAPARIN SOD 100 MG/1 ML SYRINGE SC SCH (00:30)
[2025-05-15 00:35] VITALS: BP 121/67; PULSE 84; RESP 18; TEMP 98.2; O2SAT 96
[2025-05-15 04:48] VITALS: BP 112/83; PULSE 70; RESP 19; TEMP 98.4; O2SAT 96
[2025-05-15 05:30] LABS: COVID19 ANTIGEN SOFIA FIA NEGATIVE (NEGATIVE)
[2025-05-15 08:00] VITALS: PULSE 71; PULSE 72; RESP 14; O2SAT 93
[2025-05-15 09:00] VITALS: BP 129/106; PULSE 76; RESP 19; TEMP 98.2; O2SAT 98
--- NOTE | 2025-05-15 09:07 | DVHPN2 ---
Progress Note - Dictate Date Seen: May 15, 2025 Medical Necessity Reason Pt with a Central, PICC or Fol: No vital signs Vital Sign Date Time Temp Pulse Resp B/P (MAP) Pulse Ox O2 Delivery O2 Flow Rate FiO2 05/15/25 04:48 98.4 70 19 112/83 (93) 96 98.4 05/14/25 07:00 Room Air* 0 21 Total Intake and Output 05/14/25 05/14/25 05/15/25 15:00 23:00 07:00 Intake Total 300 ml 840 ml Balance 300 ml 840 ml medications Current Medications Medications Dose Ordered Sig/Julia Route Start Time Stop Time Status Last Admin Dose Admin Ondansetron HCl 4 mg Q4HP PRN IV 05/13/25 23:45 Enoxaparin Sodium 40 mg DAILY SC 05/14/25 10:00 UNV Morphine Sulfate 2 mg Q4HPRN PRN IV 05/13/25 23:45 Morphine Sulfate 2 mg Q30M PRN IV 05/13/25 23:45 Pantoprazole Sodium 40 mg DAILY IV 05/14/25 10:00 05/14/25 10:17 40 MG Acetaminophen/ Hydrocodone Bitart 1 tab Q4HP PRN PO 05/13/25 23:45 Temazepam 15 mg QHSP PRN PO 05/13/25 23:45 05/14/25 01:37 15 MG Docusate Sodium 100 mg BIDPRN PRN PO 05/13/25 23:45 Acetaminophen 650 mg Q6HP PRN PO 05/13/25 23:45 Nitroglycerin 0.4 mg Q5MINP PRN SL 05/13/25 23:45 Metoprolol Tartrate 50 mg BID PO 05/13/25 23:45 05/14/25 23:12 50 MG Alprazolam 0.5 mg Q4HPRN PRN PO 05/14/25 01:30 05/15/25 00:11 0.5 MG Enoxaparin Sodium 100 mg Q12HR@0000,1200 SC 05/15/25 00:30 05/15/25 00:30 100 MG laboratory and microbiology Laboratory Tests 05/14/25 04:45 Test 05/14/25 04:45 Range/Units Serum Glucose 109 H 74-106 mg/dL Assessment/Plan Patient is a 49-year-old female who presented with repeated episodes of palpitation. Reportedly, the patient presented with palpitation and was found to have SVT. She was given adenosine and later went home. While at home she again experienced palpitations and came back to the hospital and was given adenosine again. Review of the EKGs reveals episode of SVT. She also mentions that she is experiencing some sore throat for half a day. Denies fevers denies change in appetite. She mentions less mobility secondary to old on right leg injury/fracture. She mentions prior history of heart failure (in ). She mentions that she does not follow with Cardiology as outpatient. Review of outside records of 2017 reveals ejection fraction of 30-45%. Patient herself mentions that the heart failure improved and was resolved later. Patient mentions that she was in hospital around a year ago for the right leg fracture and at that point she was told that her ejection fraction was normalized at 75%. No record of the ejection fraction of 75% is available to review. Patient does have old history of methamphetamine abuse but mentions that her last use was around 2 years ago. Does have noncompliance history. Mentions the last time she saw her outside physician (PCP) was over a year ago in [place]. Does not follow with any physicians around here. Mentions that she only takes lisinopril for high blood pressure. Cardiology is involved for cardiac aspects of care. Patient denies any chest pains. Denies recent leg swellings. Does complain of poor exertional capacity secondary to gaining weight (as per patient). Denies loss of consciousness. Morbidly obese female. Lying flat in bed. No JVD. Mucosa is pink and wet. No carotid bruit. Not using accessory muscles of breathing. Scattered rhonchi in the lungs is heard. No rales in the lungs is heard. Cardiac: Regular, no thrill/gallop. Abdomen is soft but obese. Bowel sound is positive. There is no abdominal tenderness. Secondary to body habitus I can not comment on mass/presence of hepatomegaly? 1+ edema bilaterally is seen. Dorsalis pedis is 2+ bilateral Past medical history includes CHF (as per patient was resolved), hypertension, history of SVT, old history of tubal ligation surgery, asthma (many years ago), morbid obesity, DJD, history of right leg fracture and noncompliance. Nuclear stress test of May 2016 (outside record) revealed ejection fraction of 30% and mild fixed defect along the base. Echocardiogram of 2017 (outside record) revealed ejection fraction of 45% WBC: 10.5 Hemoglobin: 12.4 Creatinine: 0.71 Potassium: 3.9 Troponin (high sensitive): 239 - 235 - 239 BNP: 76.79 TSH: 1.35 D-Dimer: 2.04 Flu/Covid/strep: negative Chest x-ray revealed: IMPRESSION: NO ACUTE CARDIOPULMONARY PROCESS. CTA of lungs revealed: IMPRESSION: No pulmonary embolism. No acute thoracic finding. Venous duplex of lower ext revealed: IMPRESSION: NO SONOGRAPHIC EVIDENCE FOR DEEP VENOUS THROMBOSIS IN THE BILATERAL LOWER EXTREMITY VEINS. EKG revealed SVT. Repeat EKG reveals sinus rhythm with no specific ST-T changes Telemetry reveals sinus rhythm Echocardiogram revealed: Left ventricle: Mild concentric left ventricular hypertrophy was seen. LVEF was around 60%. There was no gross wall motion abnormality. Diastolic function was considered normal for age. Right ventricle was normal-sized with normal systolic function. Both atria were normal-sized. Aortic valve: Aortic valve was trileaflet. There was no aortic insufficiency/stenosis. There was trace mitral/tricuspid/pulmonary valve regurgitation. Right ventricular systolic pressure was less than 35 mm Hg (normal). There was trace pericardial effusion. Left Heart Cath: Nonobstructive coronary artery disease (minor luminal irregularities) with tortuous LAD (in favor hypertensive heart disease); LVEF of 60% with normal EDP; Cardiac suggestion for management: Optimized medical therapy; Lifestyle and risk factor modification Patient is a 49-year-old female who presented with repeated episodes of tachyarrhythmia which responded to adenosine. EKG at the time revealed SVT. Patient is found to have minimally elevated/flat troponin. Patient does have old history of heart failure. As per history, the patient's heart failure was resolved later. She also has old history of methamphetamine abuse which could have contributed to the clinical picture? Minimally elevated flat troponin is not typical of acute coronary syndrome. Presentation was also not typical of acute coronary syndrome. Elevated troponin in a tachyarrhythmia most likely reflects demand ischemia. Patient does have history of poor functional capacity which she attributed to right leg injury. Is it possible that the patient had DVT/pulmonary emboli resulting in tachyarrhythmia? She also complains of some sore throat and intercurrent disease/URI could have contributed to the clinical picture? D-Dimer was elevated. CTA of lungs ruled out Pulmonary Emboli. Venous duplex of lower ext ruled out DVT. Echo revealed preserved LV systolic function. As trop is elevated and as EKG during SVT revealed ST depression, ischemic work up is suggested. Will suggest Cardiac Catheterization. Non-stemi is considered and needs to be ruled out. s/p LHC: non-obstructive CAD (minor luminal irregularities) with tortuous LAD (in favor hypertensive heart disease) Narrow complex tachyarrhythmia . SVT Abnormal troponin Heart failure, history of Morbid obesity URI Substance abuse, history of Hypertension Poor functional capacity Old history of tubal ligation Cardiac suggestion for management: Manage on telemetry Follow-up electrolytes and kidney function tests and correct abnormalities. Keep potassium above 4 and magnesium above 2 Urine drug screen s/p Left Heart Cath: Nonobstructive coronary artery disease (minor luminal irregularities) with tortuous LAD (in favor hypertensive heart disease); LVEF of 60% with normal EDP; Cardiac suggestion for management: Optimized medical therapy; Lifestyle and risk factor modification Beta hernando (on Metoprolol Tartrate: 50 mg BID) Counseled to have reduced caffeine and alcohol diet No need for Lovenox anymore. Cardiac ulrich, is stable and can be followed as outpatient Lifestyle and risk factor modifications Further evaluation and management depends on the above and clinical course A total of 55 minutes was spent reviewing the patient record, examining the patient, making a diagnostic and therapeutic plan, discussing this plan with medical personnel, following up on diagnostic studies and following the patient for clinical stability excluding any and all procedures. At least 50% of this time was spent in direct, [id number] contact. Thank you for allowing me to participate in this patient's care. Further recommendations will depend on patient's clinical course. Please do not hesitate to contact me if you have any questions or concerns. This medical document was created using electronic medical record system with [employer] computerized dictation system. Although this document has been carefully reviewed, there may still be some phonetic and typographical errors. These areas are purely typographical due to the imperfection of the software programs, and do not reflect any compromise in the patient's medical care. Plan discussed with: Patient, Other (nurse) KIM VAUGHN MD May 15, 2025 09:07
[2025-05-15] MEDS ORDERED: MET50T PO (09:57)
--- NOTE | 2025-05-15 09:58 | DVHDS2 ---
Discharge Summary Date of Admission May 13, 2025 at 23:27 Date of Discharge: May 15, 2025 Labs/Diagnostic Data: Laboratory Results Test 05/15/25 03:50 05/14/25 10:35 05/14/25 04:45 05/14/25 01:40 Influenza Type A Antigen Negative (Negative) Influenza Type B Antigen Negative (Negative) SARS-CoV-2 Antigen (Rapid) Negative (NEGATIVE) Prothrombin Time 10.2 sec (9.3-11.8) Prothrombin Time INR 0.96 (0.9-1.15) Activated Partial Thromboplast Time 28.9 SEC (24.5-34.5) D-Dimer, Quantitative 2.04 mg/L FEU (0.0-0.49) White Blood Count 10.5 10^3/uL (4.4-10.8) Red Blood Count 4.05 10^6/uL (4.0-5.20) Hemoglobin 12.4 g/dL (12.2-16.2) Hematocrit 37.0 % (36.0-46.0) Mean Corpuscular Volume 91.4 fL (80.0-100.0) Mean Corpuscular Hemoglobin 30.5 pg (28.0-32.0) Mean Corpuscular Hemoglobin Concent 33.4 g/dL (32.0-36.0) Red Cell Distribution Width 14.0 % (11.8-14.3) Platelet Count 305 10^3/uL (140-450) Mean Platelet Volume 8.0 fL (6.9-10.8) Neutrophils (%) (Auto) 61.8 % (37.0-80.0) Lymphocytes (%) (Auto) 27.1 % (10.0-50.0) Monocytes (%) (Auto) 7.8 % (0.0-12.0) Eosinophils (%) (Auto) 2.8 % (0.0-7.0) Basophils (%) (Auto) 0.5 % (0.0-2.0) Neutrophils # (Auto) 6.5 10 ^3/uL (1.6-8.6) Lymphocytes # (Auto) 2.8 10 ^3/uL (0.4-5.4) Monocytes # (Auto) 0.8 10 ^3/uL (0-1.3) Eosinophils # (Auto) 0.3 10 ^3/uL (0-0.8) Basophils # (Auto) 0.1 10 ^3/uL (0-0.2) Nucleated Red Blood Cells 0.0 % Sodium Level 139 mmol/L (136-145) Potassium Level 3.9 mmol/L (3.5-5.1) Chloride Level 108 mmol/L (98-107) Carbon Dioxide Level 21 mmol/L (20-31) Anion Gap 10 (5-15) Blood Urea Nitrogen 16 mg/dL (9-23) Creatinine 0.71 mg/dL (0.550-1.02) Glomerular Filtration Rate Calc 103 mL/min (>90) BUN/Creatinine Ratio 22.5 (10.0-20.0) Serum Glucose 109 mg/dL (74-106) Calcium Level 9.0 mg/dL (8.7-10.4) Total Bilirubin 0.3 mg/dL (0.2-1.0) Aspartate Amino Transferase (AST) 25 U/L (13-40) Alanine Aminotransferase (ALT) 26 U/L (7-40) Alkaline Phosphatase 73 U/L (46-116) B-Type Natriuretic Peptide 76.79 pg/mL (0-100) Total Protein 6.4 g/dL (5.7-8.2) Albumin 3.8 g/dL (3.2-4.8) Triglycerides Level 59 mg/dL (< 150) Cholesterol Level 143 mg/dL (< 200) LDL Cholesterol 101 mg/dL (< 100) HDL Cholesterol 45 mg/dL (40-59) Thyroid Stimulating Hormone (TSH) 1.35 uIU/mL (0.55-4.78) Group A Streptococcus Rapid Negative Test 05/14/25 00:26 Troponin I High Sensitivity 239 ng/L (</=34) Other Laboratory Tests 05/14/25 04:45 Final Diagnosis/Problems List 1. SVT (received adenosine in ER) Monitor, cardiology consult 2. Palpitations Monitor, cardiology consult 3. Benign essential HTN Monitor, restart lisinopril, antihypertensives 4. Acute on chronic systolic CHF Monitor, cardiology consult 5. Hx drug abuse Monitor, PPI, SVT prophylaxis 6. Elevated d dimer Discharge Disposition: Home Discharge Instruct/Medications Diet: Cardiac 2g Na,low cholest Activity: No Restrictions, As Tolerated Follow Up/Referral: pcp within 1 week Scheduled Lisinopril (Lisinopril), 1 TAB PO DAILY Metoprolol Tartrate (Lopressor Tablet), 50 MG PO BID Prednisone (Prednisone), 40 MG PO DAILY Scheduled PRN Epinephrine (Anaphylaxis) (Auvi-Q), 0.1 MG IJ O PRN Discharge Statement: "Patient was advised to return to the ER or call 911 if any headaches, dizziness, shortness of breath, chest pain, abdominal pain, bleeding, fevers, or worsening of medical condition. Patient was counseled about treatment plan, medications, possible side effects, patientverbalized understanding. All questions were answered to the best of my ability. This discharge took greater then 30 minutes in planning, reviewing documentation, counseling the patient, and discussing with other team members." ASSESSMENT ASSESSMENT Assessment 1. SVT (received adenosine in ER) Monitor, cardiology consult 2. Palpitations Monitor, cardiology consult 3. Benign essential HTN Monitor, restart lisinopril, antihypertensives 4. Acute on chronic systolic CHF Monitor, cardiology consult 5. Hx drug abuse Monitor, PPI, SVT prophylaxis 6. Elevated d dimer MAYO MOJICA May 15, 2025 09:58
[2025-05-15 13:00] VITALS: BP 127/98; PULSE 68; RESP 20; TEMP 98.1; O2SAT 97
--- NOTE | 2025-05-15 13:29 | DVHDS2 ---
Discharge Summary Date of Admission May 13, 2025 at 23:27 Date of Discharge: May 15, 2025 Admitting Diagnosis SVT Labs/Diagnostic Data: Laboratory Results Test 05/15/25 03:50 05/14/25 10:35 05/14/25 04:45 05/14/25 01:40 Influenza Type A Antigen Negative (Negative) Influenza Type B Antigen Negative (Negative) SARS-CoV-2 Antigen (Rapid) Negative (NEGATIVE) Prothrombin Time 10.2 sec (9.3-11.8) Prothrombin Time INR 0.96 (0.9-1.15) Activated Partial Thromboplast Time 28.9 SEC (24.5-34.5) D-Dimer, Quantitative 2.04 mg/L FEU (0.0-0.49) White Blood Count 10.5 10^3/uL (4.4-10.8) Red Blood Count 4.05 10^6/uL (4.0-5.20) Hemoglobin 12.4 g/dL (12.2-16.2) Hematocrit 37.0 % (36.0-46.0) Mean Corpuscular Volume 91.4 fL (80.0-100.0) Mean Corpuscular Hemoglobin 30.5 pg (28.0-32.0) Mean Corpuscular Hemoglobin Concent 33.4 g/dL (32.0-36.0) Red Cell Distribution Width 14.0 % (11.8-14.3) Platelet Count 305 10^3/uL (140-450) Mean Platelet Volume 8.0 fL (6.9-10.8) Neutrophils (%) (Auto) 61.8 % (37.0-80.0) Lymphocytes (%) (Auto) 27.1 % (10.0-50.0) Monocytes (%) (Auto) 7.8 % (0.0-12.0) Eosinophils (%) (Auto) 2.8 % (0.0-7.0) Basophils (%) (Auto) 0.5 % (0.0-2.0) Neutrophils # (Auto) 6.5 10 ^3/uL (1.6-8.6) Lymphocytes # (Auto) 2.8 10 ^3/uL (0.4-5.4) Monocytes # (Auto) 0.8 10 ^3/uL (0-1.3) Eosinophils # (Auto) 0.3 10 ^3/uL (0-0.8) Basophils # (Auto) 0.1 10 ^3/uL (0-0.2) Nucleated Red Blood Cells 0.0 % Sodium Level 139 mmol/L (136-145) Potassium Level 3.9 mmol/L (3.5-5.1) Chloride Level 108 mmol/L (98-107) Carbon Dioxide Level 21 mmol/L (20-31) Anion Gap 10 (5-15) Blood Urea Nitrogen 16 mg/dL (9-23) Creatinine 0.71 mg/dL (0.550-1.02) Glomerular Filtration Rate Calc 103 mL/min (>90) BUN/Creatinine Ratio 22.5 (10.0-20.0) Serum Glucose 109 mg/dL (74-106) Calcium Level 9.0 mg/dL (8.7-10.4) Total Bilirubin 0.3 mg/dL (0.2-1.0) Aspartate Amino Transferase (AST) 25 U/L (13-40) Alanine Aminotransferase (ALT) 26 U/L (7-40) Alkaline Phosphatase 73 U/L (46-116) B-Type Natriuretic Peptide 76.79 pg/mL (0-100) Total Protein 6.4 g/dL (5.7-8.2) Albumin 3.8 g/dL (3.2-4.8) Triglycerides Level 59 mg/dL (< 150) Cholesterol Level 143 mg/dL (< 200) LDL Cholesterol 101 mg/dL (< 100) HDL Cholesterol 45 mg/dL (40-59) Thyroid Stimulating Hormone (TSH) 1.35 uIU/mL (0.55-4.78) Group A Streptococcus Rapid Negative Test 05/14/25 00:26 Troponin I High Sensitivity 239 ng/L (</=34) Other Laboratory Tests 05/14/25 04:45 Brief Hx & Hospital Course: Patient was admitted for supraventricular tachycardia (SVT) and was treated in the emergency department with adenosine, resulting in successful conversion to normal sinus rhythm. The patient was subsequently evaluated by cardiology and taken to the cardiac catheterization lab by Dr. Barron, where coronary angiography was essentially negative for significant coronary artery disease. The patients troponins were mildly elevated and were felt to be secondary to demand ischemia in the setting of SVT. Per cardiology recommendations, the patient is to continue metoprolol tartrate 50 mg twice daily. The patient elected to follow up with cardiology within one week of discharge and was advised to return to the emergency department if symptoms worsen. Condition at Discharge: Fair Final Diagnosis/Problems List 1. SVT (received adenosine in ER) Monitor, cardiology consult 2. Palpitations Monitor, cardiology consult 3. Benign essential HTN Monitor, restart lisinopril, antihypertensives 4. Acute on chronic systolic CHF Monitor, cardiology consult 5. Hx drug abuse Monitor, PPI, SVT prophylaxis 6. Elevated d dimer Discharge Disposition: Home Discharge Instruct/Medications Diet: Cardiac 2g Na,low cholest Activity: No Restrictions, As Tolerated Follow Up/Referral: pcp within 1 week Scheduled Lisinopril (Lisinopril), 1 TAB PO DAILY Metoprolol Tartrate (Lopressor Tablet), 50 MG PO BID Prednisone (Prednisone), 40 MG PO DAILY Scheduled PRN Epinephrine (Anaphylaxis) (Auvi-Q), 0.1 MG IJ O PRN Discharge Statement: "Patient was advised to return to the ER or call 911 if any headaches, dizziness, shortness of breath, chest pain, abdominal pain, bleeding, fevers, or worsening of medical condition. Patient was counseled about treatment plan, medications, possible side effects, patientverbalized understanding. All questions were answered to the best of my ability. This discharge took greater then 30 minutes in planning, reviewing documentation, counseling the patient, and discussing with other team members." ASSESSMENT ASSESSMENT Assessment 1. SVT (received adenosine in ER) Monitor, cardiology consult 2. Palpitations Monitor, cardiology consult 3. Benign essential HTN Monitor, restart lisinopril, antihypertensives 4. Acute on chronic systolic CHF Monitor, cardiology consult 5. Hx drug abuse Monitor, PPI, SVT prophylaxis 6. Elevated d dimer MAYO MOJICAP May 15, 2025 13:29
--- NOTE | 2025-05-20 13:01 | ECG ---
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
== END 2025-05-15 14:45 | disposition home or self-care (01) | DRG 280 ==
LOC: ER 21:27 → OVERFLOW 23:27 → ER 23:40 → TELE-WESTW 05-14 04:22
PROVIDERS: ADMIT Nurse Practitioner; ATTEND Nurse Practitioner
PROC: 4A023N7 Measurement of Cardiac Sampling and Pressure, Left Heart, Percutaneous Approach (ICD-10-PCS; principal; 2025-05-14)
PROC: B211YZZ Fluoroscopy of Multiple Coronary Arteries using Other Contrast (ICD-10-PCS; 2025-05-14)
PROC: B215YZZ Fluoroscopy of Left Heart using Other Contrast (ICD-10-PCS; 2025-05-14)
DX: I11.0 Hypertensive heart disease with heart failure (principal); I50.23 Acute on chronic systolic (congestive) heart failure; I21.A1 Myocardial infarction type 2; I47.10 Supraventricular tachycardia, unspecified; E66.01 Morbid (severe) obesity due to excess calories; J45.909 Unspecified asthma, uncomplicated; J06.9 Acute upper respiratory infection, unspecified; I25.10 Atherosclerotic heart disease of native coronary artery without angina pectoris; F17.200 Nicotine dependence, unspecified, uncomplicated; Z68.29 Body mass index [BMI] 29.0-29.9, adult; Z79.899 Other long term (current) drug therapy; Z88.0 Allergy status to penicillin; Z91.040 Latex allergy status; Z91.148 Patient's other noncompliance with medication regimen for other reason; Z98.51 Tubal ligation status
CPT/HCPCS: 36415; 71045; 71275; 80053; 80061; 83880; 84443; 84484; 85025; 85379; 85610; 85730; 87070; 87426; 87804; 87880; 93005; 93306; 93458; 93970; 99152; G0378; J2250; J2470; Q9967